=== PATIENT | male | born 1950 | race Caucasian/White ===

== ENCOUNTER 2019-09-08 12:29 | Emergency (ER) | payer OTHER, BC ==
[2019-09-08] MEDS ORDERED: FLUORESCEIN SODIUM 1 MG/WRAP ONE (12:54)
[2019-09-08] MEDS ORDERED: TETRACAINE HCL 0.5% 4ML OPTH ONE (12:54)
--- NOTE | 2019-09-08 13:47 | EDPHYS ---
Physician Documentation [facility] Name: Reuben Jane Age: 69 yrs Sex: Male : 1950 Arrival Date: 09/08/2019 Time: 12:33 Bed 12 Private MD: Remington Salinas ED Physician Kade Castañeda HPI: 09/07 13:42 This 69 yrs old Male presents to ER via Ambulatory with complaints of Foreign rn Body In Eye. 13:42 The patient is experiencing foreign body sensation, to the left eye, caused by debris. rn Onset: The symptoms/episode began/occurred just prior to arrival. Duration: the symptoms are continuous. Aggravated by blinking, rubbing. Severity of symptoms: At their worst the symptoms were moderate in the emergency department the symptoms are unchanged. The patient has experienced similar episodes in the past. Reports scraping a golf cart, prior to arrival, thinks got piece in eye, no vision defect, feels like under left eyelid. No high speed injury. . Historical: - Allergies: 12:45 PENICILLINS; ss - PSHx: 12:45 Cholecystectomy; Heart Surgery; Heart stents; ss - Immunization history:: Last tetanus immunization: up to date. - Social history:: Smoking status: Patient denies any tobacco usage or history of. - Family history:: not pertinent. - Hospitalizations: : No recent hospitalization is reported. ROS: 13:42 Eyes: + foreign body sensation left eye rn Exam: 13:42 Eyes: Pupils equal round and reactive to light, extra-ocular motions intact, no signs rn of corneal ulcer/abrasion, no perforation of eye. + small single black inner upper eyelid left eye. Vital Signs: 12:44 BP 159 / 74; Pulse 75; Resp 16; Temp 98.6(TE); Pulse Ox 97% on R/A; Weight 90.72 kg; ss Height 5 ft. 11 in. (180.34 cm); 12:44 Body Mass Index 27.89 (90.72 kg, 180.34 cm) ss Procedures: 13:42 Foreign Body Removal: a piece of metal, from the left eye, by using a cotton-tipped rn swab, Dressing: none, The patient tolerated the removal well. MDM: 13:38 Patient medically screened. rn 13:42 Differential diagnosis: Corneal abrasion of Foreign body in. Data reviewed: vital rn signs, nurses notes, and as a result, I will discharge patient. Counseling: I had a detailed discussion with the patient and/or guardian regarding: the historical points, exam findings, and any diagnostic results supporting the discharge/admit diagnosis, the need for outpatient follow up, to return to the emergency department if symptoms worsen or persist or if there are any questions or concerns that arise at home. Response to treatment: the patient's symptoms have markedly improved after treatment, and as a result, I will discharge patient. Special discussion: I discussed with the patient/guardian in detail that at this point there is no indication for admission to the hospital. It is understood, however, that if the symptoms persist or worsen the patient needs to return immediately for re-evaluation. Administered Medications: No medications were administered Disposition: 09/08/19 13:45 Discharged to Home. Impression: Foreign body in other and multiple parts of external eye, left eye. - Condition is Stable. - Discharge Instructions: Eye Foreign Body. - Medication Reconciliation Form, Thank You Letter, Antibiotic Education, Prescription Opioid Use form. - Follow up: Private Physician; When: As needed; Reason: Recheck today's complaints, Re-evaluation by your physician. - Problem is new. - Symptoms have improved. Signatures: Kade Castañeda MD MD rn Smirch, Shelby, RN RN ss Emmett Goodwin RN RN ll1 Corrections: (The following items were deleted from the chart) 13:59 13:45 09/08/2019 13:45 Discharged to Home. Impression: Foreign body in other and ll1 multiple parts of external eye, left eye. Condition is Stable. Forms are Medication Reconciliation Form, Thank You Letter, Antibiotic Education, Prescription Opioid Use. Follow up: Private Physician; When: As needed; Reason: Recheck today's complaints, Re-evaluation by your physician. Problem is new. Symptoms have improved. rn
--- NOTE | 2019-09-08 13:47 | ER ---
Nurse's Notes [facility] Name: Reuben Jane Age: 69 yrs Sex: Male : 1950 Arrival Date: 09/08/2019 Time: 12:33 Bed 12 Private MD: Remington Salinas Diagnosis: Foreign body in other and multiple parts of external eye, left eye Presentation: 09/07 12:44 Chief complaint: Patient states: pain to L eye. Pt was sanding object to pain and ss believes some rust may have gotten into his eye. Coronavirus screen: Proceed with normal triage. Patient denies a cough. Patient denies shortness of breath or difficulty breathing. Patient denies measured and/or subjective temperature greater than 100.4F prior to today's visit. Patient denies travel on a cruise ship or to a country the [facility] currently lists as an affected area. Patient denies contact with known and/or suspected case of COVID-19. Ebola Screen: Patient denies exposure to infectious person. Patient denies travel to an Ebola-affected area in the 21 days before illness onset. Initial Sepsis Screen: Does the patient meet any 2 criteria? No. Patient's initial sepsis screen is negative. Does the patient have a suspected source of infection? No. Patient's initial sepsis screen is negative. Risk Assessment: Do you want to hurt yourself or someone else? Patient reports no desire to harm self or others. Onset of symptoms was September 08, 2019. 12:44 Method Of Arrival: Ambulatory ss 12:44 Acuity: TANO 4 ss Triage Assessment: 13:43 General: Appears in no apparent distress. Behavior is calm, cooperative, appropriate ll1 for age. Pain: Denies pain. Historical: - Allergies: 12:45 PENICILLINS; ss - PSHx: 12:45 Cholecystectomy; Heart Surgery; Heart stents; ss - Immunization history:: Last tetanus immunization: up to date. - Social history:: Smoking status: Patient denies any tobacco usage or history of. - Family history:: not pertinent. - Hospitalizations: : No recent hospitalization is reported. Screenin:05 Abuse screen: Denies threats or abuse. Denies injuries from another. Nutritional ss screening: No deficits noted. Tuberculosis screening: Never had TB. Fall Risk None identified. Assessment: 13:30 Reassessment: irrigated patient's L eye with 60 mL of NS. 13:42 Reassessment: Patient appears in no apparent distress at this time. Patient and/or ss family updated on plan of care and expected duration. Pain level reassessed. Patient is alert, oriented x 3, equal unlabored respirations, skin warm/dry/pink. Vital Signs: 12:44 BP 159 / 74; Pulse 75; Resp 16; Temp 98.6(TE); Pulse Ox 97% on R/A; Weight 90.72 kg; ss Height 5 ft. 11 in. (180.34 cm); 12:44 Body Mass Index 27.89 (90.72 kg, 180.34 cm) ED Course: 12:33 Patient arrived in ED. mr 12:33 Remington Salinas MD is Private Physician. mr 12:45 Triage completed. ss 12:45 Arm band placed on left wrist. ss 13:05 Nadiya Poe, CALE is Primary Nurse. 13:05 Patient has correct armband on for positive identification. Bed in low position. Call ss light in reach. 13:37 Kade Castañeda MD is Attending Physician. rn 13:42 Assist provider with eye exam of left eye. Performed by Kade Castañeda MD Patient ss tolerated well. 13:44 Patient did not have IV access during this emergency room visit. Administered Medications: No medications were administered Outcome: 13:44 Discharged to home ambulatory. ss 13:44 Condition: good 13:44 Discharge instructions given to patient, Instructed on discharge instructions, follow up and referral plans. Demonstrated understanding of instructions, follow-up care. 13:45 Discharge ordered by . rn 13:59 Patient left the ED. ll1 Signatures: Jaqueline Martino mr Kade Castañeda MD MD rn Smirch, Shelby, RN RN Emmett Goodwin RN RN ll1
[2019-09-08 14:20] VITALS: BP 159/74; TEMP 98.6; O2SAT 97
== END 2019-09-08 13:59 | disposition home or self-care (01) ==
LOC: ER 12:29
DX: T15.82XA Foreign body in other and multiple parts of external eye, left eye, initial encounter (principal); Z88.0 Allergy status to penicillin; Z95.5 Presence of coronary angioplasty implant and graft
CPT/HCPCS: 99283

== ENCOUNTER 2020-08-11 06:22 | Day surgery (SDC) | payer OTHER, BC ==
[2020-08-10 11:34] LABS: BUN Blood Urea Nitrogen 6 mg/dL (7-18); Bicarbonate 29 mmol/L (21-32); Glucose Level 99 mg/dL (74-106); Potassium 3.9 mmol/L (3.5-5.1); Sodium Level 138 mmol/L (136-145)
[2020-08-10 11:48] LABS: Protime INR 0.98
[2020-08-10 11:56] LABS: Absolute Lymphocytes (CBC) 1.6 K/uL (0.7-4.9); Basophils % 0.4 % (0-1.3); Hematocrit 43.6 % (39.6-49.0); Lymphocytes % 30.2 % (15.3-44.8); MPV 6.6 fL (7.6-11.3); RBC Red Blood Cell Count 4.64 M/uL (4.33-5.43)
--- NOTE | 2020-08-10 11:58 | RAD REPORT ---
EXAM DESCRIPTION: RAD - Chest Pa And Lat (2 Views) - 08/10/2020 11:26 am CLINICAL HISTORY: preop, pending heart catheterization COMPARISON: None TECHNIQUE: Frontal and lateral views of the chest were obtained. FINDINGS: The lungs are clear. Diaphragm is flattened. Heart size is normal and central vasculature is within normal limits. No pleural effusion or pneumothorax seen. No acute bony finding noted. N o aortic abnormality. IMPRESSION: No acute cardiopulmonary process. No significant change from comparison study.
[2020-08-11] MEDS ORDERED: NA CHLORIDE 0.9% 500 ML ONE (07:19)
[2020-08-11] MEDS ORDERED: LIDOCAINE 1% 20 ML MDV ONE (07:33)
[2020-08-11] MEDS ORDERED: HEPA 1000U/500MLS 1,000 UNIT/500 ML BAG IV ONE (07:33)
[2020-08-11] MEDS ORDERED: MIDAZOLAM HCL 2 MG/2 ML INJ ONE (07:34)
[2020-08-11] MEDS ORDERED: ATROPINE SULF 1 MG/10 ML SYR IV ONE (07:35)
[2020-08-11] MEDS ORDERED: NA CHLORIDE 0.9% 0 ML ONE (07:35)
[2020-08-11] MEDS ORDERED: FENTANYL CITR 100 MCG/2 ML ONE (07:35)
[2020-08-11 08:39] VITALS: TEMP 97
[2020-08-11 10:18] VITALS: BP 146/60; O2SAT 97
[2020-08-11] MEDS ORDERED: PRASUGREL (EFFIENT) 10 MG TAB ONE (12:25)
[2020-08-11] MEDS ORDERED: ASPIRIN 325 MG TAB ONE (12:26)
--- NOTE | 2020-08-12 11:30 | OP ---
Date of Procedure: 08/11/2020 Surgeon: Yoseph Macias MD Procedures: Left heart catheterization, selective coronary arteriogram. Indication: Unstable angina and history of coronary artery disease. Procedure In Detail: Mr. Jane was brought to the director of cardiac cath lab today on 08/11/2020 as an outpatient, prepped and draped in routine sterile fashion. Given Versed and fentanyl for sedation. Using the Se paigeinger technique, 10 mL of Xylocaine, a 6-Nepalese sheath was introduced in the right common femoral a rtery successfully. We were unable to advance a 6-Nepalese sheath catheter in the right groin secondar y to severe calcification in the iliacs. A 4-Nepalese catheter, however, was able to make it through. The JR4 catheter was used to do the diagnostic catheterization of the left main. The left main was normal and circumflex was normal ; however, the ostial LAD appeared to have a 60% to 70% st enosis. He has a short left main. The RCA showed some [id number] diffuse plaquing, but no foc al stenosis. 4-Nepalese JR4 catheter. The patient tolerated the procedure well. There wer e no complications. Blood loss was 5 mL. Anesthesia: Total conscious sedation was 45 minutes. Anesthesia: Raya Ricardo. The patient had an Angio-Seal closure device for the right groin. He will remain in the hospital for the significant stenosis in the LAD. Significant by stress test, we will consider coronary intervention in [place] because of his high ris k versus MCGREGOR to the LAD. NB/MODL Voice ID: [id number] Report ID: [id number]
== END 2020-08-11 10:15 | disposition home or self-care (01) ==
LOC: CCL 06:22
DX: I25.110 Atherosclerotic heart disease of native coronary artery with unstable angina pectoris (principal); I71.4 Abdominal aortic aneurysm, without rupture; I11.0 Hypertensive heart disease with heart failure; I50.22 Chronic systolic (congestive) heart failure; I65.23 Occlusion and stenosis of bilateral carotid arteries; I70.213 Atherosclerosis of native arteries of extremities with intermittent claudication, bilateral legs; E78.2 Mixed hyperlipidemia; K21.9 Gastro-esophageal reflux disease without esophagitis; N40.0 Benign prostatic hyperplasia without lower urinary tract symptoms; Z95.5 Presence of coronary angioplasty implant and graft; Z87.891 Personal history of nicotine dependence; Z01.810 Encounter for preprocedural cardiovascular examination; Z20.822 Contact with and (suspected) exposure to COVID-19; Z82.49 Family history of ischemic heart disease and other diseases of the circulatory system
CPT/HCPCS: 85025; 80048; 36415; 85610; 85730; 71046; 93454; U0003; C1893; C1760; J2250; J3010; J7040; J1644; J0583

== ENCOUNTER 2023-12-10 11:45 | Inpatient (IN) | payer OTHER, BC ==
[2023-12-10 12:27] LABS: Absolute Basophils 0.1 K/uL (0-0.5); Absolute Eosinophils 0.3 K/uL (0-0.5); Absolute Lymphocytes (CBC) 2.2 K/uL (0.7-4.9); Absolute Monocytes 0.8 K/uL (0.1-1.3); Absolute Neutrophil 6.7 K/uL (1.8-8.0); Basophils % 0.5 % (0-1.3); Eosinophils % 3.4 % (0-4.4); Hematocrit 38.1 % (39.6-49.0); Hemoglobin 12.6 g/dL (13.6-17.9); Lymphocytes % 21.6 % (15.3-44.8); MCH 31.8 pg (27.0-35.0); MCV 96.4 fL (80-100); MPV 7.1 fL (7.6-11.3); Monocytes % 7.7 % (3.3-12.3); Neutrophils % 66.8 % (41.7-73.7); Platelets 374 thou/uL (152-406); RBC Red Blood Cell Count 3.95 M/uL (4.33-5.43); Red Cell Distribution Width 13.8 % (12.1-15.2)
[2023-12-10 12:47] LABS: ALT/SGPT 16 U/L (16-61); AST/SGOT 31 U/L (15-37); Albumin 2.9 g/dL (3.4-5.0); Albumin/Globulin Ratio 0.7 (1.1-1.8); Alkaline Phosphatase 146 U/L (45-117); BUN Blood Urea Nitrogen 9 mg/dL (7-18); Bicarbonate 23 mEq/L (21-32); Bilirubin Direct 0.2 mg/dL (0-0.2); Bilirubin Indirect, Calculated 0.2 mg/dL (0.2-0.8); Bilirubin Total 0.4 mg/dL (0.2-1.0); Globulin 3.9 g/dL (2.3-3.5); Glomerular Filtration Rate 70 ml/min (=/>90); Glucose Level 119 mg/dL (74-106); NT PRO-BNP 3213 pg/mL (<125); Protein, Total 6.8 g/dL (6.4-8.2); Sodium Level 131 mEq/L (136-145); Troponin High Sensitivity 27.8 pg/mL (<58.9)
[2023-12-10 12:48] LABS: Magnesium < 0.5 mg/dL (1.6-2.4)
--- NOTE | 2023-12-10 13:07 | RAD REPORT ---
EXAM DESCRIPTION: RADChest Single View12/10/2023 12:34 pm CLINICAL HISTORY: DYSPNEA COMPARISON: Chest Pa And Lat (2 Views) dated 03/31/2022; Chest Pa And Lat (2 Views) dated 08/10/2020; Chest Pa And Lat (2 Views) dated 12/19/2018; CHEST SINGLE VIEW dated 12/19/2014 TECHNIQUE: Portable AP view of the chest. FINDINGS: Decreased inspiratory effort limits evaluation. Left chest wall pacer in place. The lungs are clear. No pneumothorax or effusion. The cardiomediastinal contours are otherwise unchanged with sequelae of median sternotomy. IMPRESSION: No acute cardiopulmonary process.
[2023-12-10] MEDS ORDERED: NA CHLORIDE 0.9% 250 ML ONE (13:51)
[2023-12-10] MEDS ORDERED: Magnesium Sulfate 2gm IVPB 2 G/50 ML BAG IV ONE (13:52)
[2023-12-10] MEDS ORDERED: CALCIUM GLUCONATE 1 GM IVPB 0 GM/0 ML BAG IV ONE (13:52)
[2023-12-10] MEDS ORDERED: KCL 20 MEQ/100 mL IVPB 100 ML IV ONE (13:52)
--- NOTE | 2023-12-10 13:52 | ER ---
Nurse's Notes [facility] Name: Reuben Jane Age: 73 yrs Sex: Male : 1950 Arrival Date: 12/10/2023 Time: 11:45 Bed 3 Private MD: Diagnosis: Hypocalcemia;Anemia, unspecified;Hypomagnesemia;Hypokalemia;Heart failure, unspecified Presentation: 12/09 11:58 Chief complaint: Patient states: SOB for 3 days, more severe today. + N/V during ll1 triage. No known fever. Coronavirus screen: Client denies travel out of the [place] in the last 14 days. cough unrelated to allergies, difficulty breathing, shortness of breath, Client presents with at least one sign or symptom that may indicate coronavirus-19. Standard/surgical mask placed on the client. Ebola Screen: Patient denies travel to an Ebola-affected area in the 21 days before illness onset. Initial Sepsis Screen: Does the patient meet any 2 criteria? No. Patient's initial sepsis screen is negative. Does the patient have a suspected source of infection? No. Patient's initial sepsis screen is negative. Risk Assessment: Do you want to hurt yourself or someone else? Patient reports no desire to harm self or others. Onset of symptoms was December 08, 2023. 11:58 Method Of Arrival: Ambulatory ll1 11:58 Acuity: TANO 2 ll1 Triage Assessment: 11:59 General: Appears distressed, uncomfortable, ill, Behavior is cooperative, appropriate ll1 for age. Respiratory: Reports shortness of breath cough that is Onset: The symptoms/episode began/occurred 3 days ago, worse today. 15:55 Respiratory: the patient has mild shortness of breath. dd2 Historical: - Allergies: 11:57 PENICILLINS; ll1 - PMHx: 11:57 Bladder cancer; Chronic obstructive lung disease; Congestive heart failure; Myocardial ll1 infarction; Prostate Cancer; - PSHx: 11:57 Appendectomy; Cholecystectomy; Coronary Angioplasty; Pacemaker/Defibrillator; ll1 - Immunization history:: Adult Immunizations up to date. - Infectious Disease History:: Denies. - Social history:: Smoking status: Patient reports the use of cigarette tobacco products, smokes one-half pack cigarettes per day. Screenin:19 [facility] ED Fall Risk Assessment (Adult) History of falling in the last 3 months, dd2 including since admission No falls in past 3 months (0 pts) Confusion or Disorientation No (0 pts) Intoxicated or Sedated No (0 pts) Impaired Gait No (0 pts) Mobility Assist Device Used No (0 pt) Altered Elimination No (0 pt) Score/Fall Risk Level 0 - 2 = Low Risk Oriented to surroundings, Maintained a safe environment, Hourly rounding (assess needs \\T\\ fall precautionary measures) done. Abuse screen: Denies threats or abuse. Nutritional screening: No deficits noted. Tuberculosis screening: No symptoms or risk factors identified. Assessment: 12:19 General: Appears uncomfortable, Behavior is calm, cooperative. Pain: Denies pain. dd2 Neuro: Reports numbness in GENERALIZED. Cardiovascular: Reports nausea, Rhythm is atrial pacer. Respiratory: Reports shortness of breath Airway is patent Respiratory effort is even, unlabored, Breath sounds are clear. GI: No deficits noted. : No deficits noted. EENT: No deficits noted. Derm: No deficits noted. Musculoskeletal: No deficits noted. Vital Signs: 11:58 Pulse 99; Resp 20; Temp 97.6; Pulse Ox 96% on R/A; Weight 92.99 kg; Height 5 ft. 11 in. ll1 ; 12:25 BP 127 / 99; Pulse 76; Resp 17; Pulse Ox 93% ; dd2 14:49 BP 125 / 59; Pulse 71; Resp 16; Pulse Ox 95% ; dd2 11:58 Body Mass Index 28.59 (92.99 kg, 180.34 cm) ll1 ED Course: 11:48 Patient arrived in ED. ra3 11:50 Dragan Torres DO is Attending Physician. ms3 11:52 Arm band placed on Patient placed in an exam room, on a stretcher. ll1 11:59 Triage completed. ll1 12:04 AUSTEN ZHANG, CALE is Primary Nurse. dd2 12:19 Patient has correct armband on for positive identification. Bed in low position. Call dd2 light in reach. Side rails up X 1. Provided Education on: CALL LIGHT, IV, PROCEDURES. Door closed. Warm blanket given. 12:19 No provider procedures requiring assistance completed. dd2 12:20 Inserted saline lock: 20 gauge in right forearm, using aseptic technique. go2 12:20 Basic Metabolic Panel Sent. go2 12:20 CBC with Diff Sent. go2 12:20 LFT's Sent. go2 12:20 Magnesium Sent. go2 12:20 NT PRO-BNP Sent. go2 12:20 Troponin HS Sent. go2 12:36 XRAY Chest (1 view) In Process Unspecified. EDMS 13:49 Kim Salinas MD is Hospitalizing Provider. ms3 14:02 Magnesium Sent. go2 14:45 CM met with patient at bedside in ED exam room. Patient identified by name and . ane Demographic sheet confirmed. states he lives with his in a home that is on "stilts" and an elevator. Patient states he is the primary caregiver for his , who had a stroke, then had a fall resulting in a broken hip. He goes on to explain that his Suzy is currently recovering at [facility] in [place], [place]. states prior to admission, he performs ADLs independently. DME in the home includes a cane and a walker. Mr. Jane's preferred plan is to return home upon discharge. He states he has many friends that will be able to provide support when him and his Suzy are both discharged. He states his friend Orestes Pascal transported him to the hospital and is able to transport him home upon discharge. CM team will continue to follow and coordinate care. 15:54 Patient admitted, IV remains in place. dd2 Administered Medications: 14:01 Drug: Potassium Chloride IV 20 mEq IV at calculated rate once; administer over 1-2 go2 hours Route: IV; Rate: calculated rate; Site: right forearm; 14:02 Drug: Magnesium Sulfate IVPB 2 grams IVPB once over 2 hrs Route: IVPB; Infused Over: 2 go2 hrs; Site: right forearm; 15:03 Follow up: Response: No adverse reaction; IV Status: Completed infusion; IV Intake: kc6 100ml 14:02 Drug: Calcium Gluconate IVPB 2 grams IVPB once over 60 mins; (mix in NS 100 mL) Route: go2 IVPB; Infused Over: 60 mins; Site: right forearm; 15:03 Follow up: Response: No adverse reaction; IV Status: Completed infusion; IV Intake: kc6 100ml Medication: 12:19 VIS not applicable for this client. dd2 Intake: 15:03 IV: 100ml; Total: 100ml. kc6 15:03 IV: 100ml; Total: 200ml. kc6 Outcome: 13:52 Decision to Hospitalize by Provider. ms3 15:54 Admitted to Med/surg accompanied by tech, via wheelchair, room 223, with chart, dd2 15:54 Condition: stable 15:54 Instructed on the need for admit, 15:55 Patient left the ED. dd2 Signatures: Dispatcher [employer] EDMS Emmett Goodwin, RN RN ll1 Dragan Torres, DO DO ms3 Candie Mccormick RN RN kc6 Carlita Lopez ra3 Marlena Arcos RN RN ane DAVIS, DIANA, RN RN dd2 Keri Cruz RN RN go2 Corrections: (The following items were deleted from the chart) 12:27 12:19 Respiratory: Reports shortness of breath Airway is patent Respiratory effort is dd2 even, unlabored, Breath sounds are clear dd2
--- NOTE | 2023-12-10 13:52 | EDPHYS ---
Physician Documentation [facility] Name: Reuben Jane Age: 73 yrs Sex: Male : 1950 Arrival Date: 12/10/2023 Time: 11:45 Bed 3 Private MD: ED Physician Dragan Torres HPI: 12/09 17:42 This 73 yrs old Male presents to ER via Ambulatory with complaints of Shortness Of ms3 Breath, tingling all over. 17:42 73-year-old male with past medical history of bladder cancer, COPD, congestive heart ms3 failure, myocardial infarction presents to the emergency department for shortness of breath that became worse today. Patient denies nausea or vomiting. Patient states he has been shaking and unable to exert himself.. Historical: - Allergies: 11:57 PENICILLINS; ll1 - PMHx: 11:57 Bladder cancer; Chronic obstructive lung disease; Congestive heart failure; Myocardial ll1 infarction; Prostate Cancer; - PSHx: 11:57 Appendectomy; Cholecystectomy; Coronary Angioplasty; Pacemaker/Defibrillator; ll1 - Immunization history:: Adult Immunizations up to date. - Infectious Disease History:: Denies. - Social history:: Smoking status: Patient reports the use of cigarette tobacco products, smokes one-half pack cigarettes per day. ROS: 17:42 Constitutional: Negative for fever, and chills. Neck: Negative for injury, pain, and ms3 swelling, Cardiovascular: Negative for chest pain, and palpitations. Abdomen/GI: Negative for abdominal pain, nausea, vomiting, diarrhea, and constipation, 17:42 Respiratory: Positive for shortness of breath, Exam: 12:22 ECG was reviewed by the Attending Physician. ms3 17:42 Constitutional: This is a well developed, well nourished patient who is awake, alert, ms3 and in no acute distress. Chest/axilla: Normal chest wall appearance and motion. Nontender with no deformity. Cardiovascular: Regular rate and rhythm with a normal S1 and S2. No gallops, murmurs, or rubs. Normal PMI, no JVD. No pulse deficits. Respiratory: Lungs have equal breath sounds bilaterally, clear to auscultation and percussion. No rales, rhonchi or wheezes noted. No increased work of breathing, no retractions or nasal flaring. Abdomen/GI: Soft, non-tender, with normal bowel sounds. No distension or tympany. No guarding or rebound. No evidence of tenderness throughout. Skin: Warm, dry with normal turgor. Normal color with no rashes, no lesions, and no evidence of cellulitis. Vital Signs: 11:58 Pulse 99; Resp 20; Temp 97.6; Pulse Ox 96% on R/A; Weight 92.99 kg; Height 5 ft. 11 in. ll1 ; 12:25 BP 127 / 99; Pulse 76; Resp 17; Pulse Ox 93% ; dd2 14:49 BP 125 / 59; Pulse 71; Resp 16; Pulse Ox 95% ; dd2 11:58 Body Mass Index 28.59 (92.99 kg, 180.34 cm) ll1 MDM: 12:06 Patient medically screened. ms3 17:42 Differential diagnosis: Anemia CHF exacerbation, Myocardial Infarction pneumonia, ms3 pulmonary edema. Data reviewed: vital signs, nurses notes, lab test result(s), EKG, radiologic studies, and as a result, I will admit patient. Consideration of Admission/Observation Patient was admitted/placed on observation. Management of patient was discussed with the following: Hospitalist: Dr. Salinas. I considered the following discharge prescriptions or medication management in the emergency department Medications were administered in the Emergency Department. See MAR. Independent interpretation of the following test(s) in the Emergency Department EKG: See my EKG interpretation above. Counseling: I had a detailed discussion with the patient and/or guardian regarding the historical points, exam findings, and any diagnostic results supporting the discharge/admit diagnosis, lab results, radiology results, the need for further work-up and treatment in the hospital. ED course: Discussed labs and imaging with patient. Patient agrees with admission. All questions were answered. Return precautions discussed include worsening symptoms, or any other concerns. On reevaluation patient remains in stable condition.. 12/09 12:07 Order name: Basic Metabolic Panel; Complete Time: 12:53 ms3 12/09 12:07 Order name: CBC with Diff; Complete Time: 12:53 ms3 12/09 12:07 Order name: LFT's; Complete Time: 12:53 ms3 12/09 12:07 Order name: Magnesium; Complete Time: 12:53 ms3 12/09 12:07 Order name: NT PRO-BNP; Complete Time: 12:53 ms3 12/09 12:07 Order name: Troponin HS; Complete Time: 12:53 ms3 12/09 13:39 Order name: Magnesium ms3 12/09 14:37 Order name: CBC with Automated Diff EDMS 12/09 14:37 Order name: CBC with Automated Diff EDMS 12/09 14:37 Order name: Comprehensive Metabolic Panel EDMS 12/09 14:37 Order name: Comprehensive Metabolic Panel EDMS 12/09 12:07 Order name: XRAY Chest (1 view); Complete Time: 13:32 ms3 12/09 12:07 Order name: Cardiac monitoring; Complete Time: 12:11 ms3 12/09 12:07 Order name: EKG - Nurse/Tech; Complete Time: 12:20 ms3 12/09 12:07 Order name: IV Saline Lock; Complete Time: 12:20 ms3 12/09 12:07 Order name: Labs collected and sent; Complete Time: 12:20 ms3 12/09 12:07 Order name: O2 Per Protocol; Complete Time: 12:10 ms3 12/09 12:07 Order name: O2 Sat Monitoring; Complete Time: 12:10 ms3 12/09 13:54 Order name: Labs - recollect needed: collect another green top; Complete Time: 14:54 bd EC:22 Rate is 82 beats/min. Rhythm is regular. QRS [place] is Normal. MT interval is normal. QRS ms3 interval is prolonged. Clinical impression: NSR w/ Non-specific ST/T Changes. Interpreted by me. Reviewed by me. Administered Medications: 14:01 Drug: Potassium Chloride IV 20 mEq IV at calculated rate once; administer over 1-2 go2 hours Route: IV; Rate: calculated rate; Site: right forearm; 14:02 Drug: Magnesium Sulfate IVPB 2 grams IVPB once over 2 hrs Route: IVPB; Infused Over: 2 go2 hrs; Site: right forearm; 15:03 Follow up: Response: No adverse reaction; IV Status: Completed infusion; IV Intake: kc6 100ml 14:02 Drug: Calcium Gluconate IVPB 2 grams IVPB once over 60 mins; (mix in NS 100 mL) Route: go2 IVPB; Infused Over: 60 mins; Site: right forearm; 15:03 Follow up: Response: No adverse reaction; IV Status: Completed infusion; IV Intake: kc6 100ml Disposition: 17:45 Critical Care:. ms3 Disposition Summary: 12/10/23 13:52 Hospitalization Ordered Notes: Hospitalization Status: Inpatient Admission ms3 Provider: Kim Salinas ms3 Location: Telemetry/[facility] (Inpatient) ms3 Condition: Stable ms3 Problem: new ms3 Symptoms: are unchanged ms3 Bed/Room Type: Standard ms3 Room Assignment: 223(12/10/23 14:51) bd Diagnosis - Hypocalcemia ms3 - Anemia, unspecified ms3 - Hypomagnesemia ms3 - Hypokalemia ms3 - Heart failure, unspecified ms3 Forms: - Medication Reconciliation Form ms3 - SBAR form ms3 - Leadership Thank You Letter ms3 Critical care time excluding procedures: 17:45 Critical care time: Bedside Care: 40 minutes, Consultation: 5 minutes, Family ms3 Intervention: 5 minutes. Total time: 50 minutes Signatures: Dispatcher [employer] EDMS Nataliya Castrejon Lynsay RN RN ll1 Dragan Torres DO DO ms3 AUSTEN ZHANG RN RN dd2 Keri Cruz RN RN go2 Candie Mccormick RN kc6 Corrections: (The following items were deleted from the chart) 12:07 12:07 BASIC METABOLIC PANEL+C.LAB.BRZ ordered. EDMS EDMS 12:07 12:07 CBC+H.LAB.BRZ ordered. EDMS EDMS 12:07 12:07 HEPATIC FUNCTION+C.LAB.BRZ ordered. EDMS EDMS 12:07 12:07 MAGNESIUM+C.LAB.BRZ ordered. EDMS EDMS 12:07 12:07 PROBNP+C.LAB.BRZ ordered. EDMS EDMS 12:07 12:07 Troponin High Sensitivity+C.LAB.BRZ ordered. EDMS EDMS 12:07 12:07 Chest Single View+RAD.RAD.BRZ ordered. EDMS EDMS 14:51 13:52 ms3 bd
[2023-12-10] MEDS ORDERED: CALCIUM GLUCONATE 1 GM IVPB 2 GM/100 ML BAG IV ONE (13:55)
[2023-12-10] MEDS ORDERED: ONDANSETRON 4 MG/2 ML VIAL IV PRN (14:31)
[2023-12-10 16:45] VITALS: BMI 28.4
[2023-12-10] MEDS: Magnesium Sulfate 2gm IVPB 2 G/50 ML BAG IV ONE (17:54)
[2023-12-10] MEDS: ROSUVASTATIN 10 MG TAB PO SCH (20:23)
[2023-12-10] MEDS: SACUBITRIL/VALSARTAN 24/26 MG TAB PO SCH (20:23)
[2023-12-10] MEDS: MIRTAZAPINE 15 MG TAB PO SCH (20:23)
[2023-12-10] MEDS: ACETAMINOPHEN 500 MG TAB PO PRN (20:24)
[2023-12-10] MEDS: METOPROLOL XL 100 MG TAB PO SCH (20:25)
[2023-12-10] MEDS: DULERA 200/5 (MOMETASONE/FORMOTEROL) INHALER IH ONE (22:29)
[2023-12-11] MEDS: TRAMADOL HCL 50 MG TAB PO ONE (03:15)
[2023-12-11 05:39] LABS: Absolute Eosinophils 0.4 K/uL (0-0.5); Absolute Lymphocytes (CBC) 1.3 K/uL (0.7-4.9); Absolute Monocytes 0.8 K/uL (0.1-1.3); Absolute Neutrophil 5.6 K/uL (1.8-8.0); Basophils % 0.3 % (0-1.3); Eosinophils % 4.4 % (0-4.4); Hematocrit 34.8 % (39.6-49.0); Hemoglobin 11.7 g/dL (13.6-17.9); Lymphocytes % 15.9 % (15.3-44.8); MCH 32.1 pg (27.0-35.0); MCHC 33.5 g/dL (32.0-36.0); MCV 95.9 fL (80-100); MPV 6.9 fL (7.6-11.3); Monocytes % 9.7 % (3.3-12.3); Neutrophils % 69.7 % (41.7-73.7); Platelets 323 thou/uL (152-406); RBC Red Blood Cell Count 3.63 M/uL (4.33-5.43); Red Cell Distribution Width 13.7 % (12.1-15.2)
[2023-12-11 05:55] LABS: AST/SGOT 26 U/L (15-37); Albumin 2.5 g/dL (3.4-5.0); Albumin/Globulin Ratio 0.7 (1.1-1.8); Alkaline Phosphatase 135 U/L (45-117); BUN Blood Urea Nitrogen 8 mg/dL (7-18); Bicarbonate 29 mEq/L (21-32); Bilirubin Total 0.4 mg/dL (0.2-1.0); Globulin 3.6 g/dL (2.3-3.5); Glomerular Filtration Rate 90 ml/min (=/>90); Glucose Level 100 mg/dL (74-106); Magnesium 1.1 mg/dL (1.6-2.4); Protein, Total 6.1 g/dL (6.4-8.2); Sodium Level 134 mEq/L (136-145)
[2023-12-11 05:59] LABS: ALT/SGPT < 14 U/L (16-61)
[2023-12-11] MEDS: Magnesium Sulfate 2gm IVPB 2 G/50 ML BAG IV ONE ×2 (06:29→13:59)
[2023-12-11] MEDS: POTASSIUM CL SA 10 MEQ TAB PO ONE (06:31)
--- NOTE | 2023-12-11 06:57 | HP ---
Date of Admission: 12/10/2023 Chief Complaint: Tingling, numbness. History Of Present Illness: This is a 73-year-old pleasant male patient, who came into our emergency room with 2 days' history of tingling and numbness in different parts of his body, randomly happenin g off and on in last 2 days. Denies any muscle spasm. He has had some diarrhea lately. No nausea, no vomiting. The patient says that he did start some new medication recently prescribed by his renetta do, but he does not know the name and he will try to get this information tomorrow. He was xiomara t into our emergency room and after he was evaluated in the emergency room, he was admitted to the [facility] with severe electrolyte imbalance including low potassium, low calcium, and low magnesium. Re placement for this electrolyte imbalance started in the emergency room and the patient was admitted t o the [facility]. The patient denies any chest pain or shortness of breath. No nausea, no vomiting. He has some chronic lower back pain and suprapubic pain. Allergies: TO PENICILLIN CAUSING RASH. Medications: List reviewed. According to office medication list, he takes PreserVision 1 tablet misty ly, aspirin 81 mg daily ezetimibe 10 mg daily, Trelegy inhaler 1 puff daily, fluticasone nasal spray 1 spray each nostril 2 times a day, furosemide 40 mg 2 times a day, gabapentin 100 mg 2 times a day, levocetirizine 5 mg daily, losartan 25 mg daily, magnesium oxide 400 mg 2 times a day, metoprolol 25 mg takes 3 tablets 2 times a day, mirtazapine 7.5 mg daily at bedtime, pantoprazole 40 mg daily, rosu vastatin 40 mg daily at bedtime, spironolactone 25 mg daily, Entresto 24/26 mg 1 tablet 2 times a day , and sertraline 25 mg daily. Review of Systems: Neurology: As mentioned above. Musculoskeletal: As mentioned above. All other systems reviewed and negative. Past Medical History: Significant for allergic rhinitis, COPD, hypertension, mixed hyperlipidemia, c oronary artery disease, non-STEMI on April 06, 2022, and the patient had angioplasty with stent pl acement, chronic systolic congestive heart failure, thoracic aortic aneurysm involving ascending aort a, aortic atherosclerosis, bilateral carotid artery stenosis, gastroesophageal reflux disease, Isai t's esophagus, diverticulosis, prostate cancer diagnosed on November 06, 2019 and was treated with radiat ion therapy so far. Past Surgical History: Coronary artery stent placement in 2002 and coronary artery bypass surgery on September 14, 2020, and coronary artery angioplasty with stent placement on April 06, 2022. The patien t had AICD placement in 2022, cholecystectomy, appendectomy. Family History: Father had [place]. Mother in motor vehicular accident. Social History: Significant for prior history of smoking, not at present time. Use of alcohol, nega tive. Physical Examination: Vital Signs: Initial temperature 96.8, pulse 76, respiratory rate 16, blood pressure 140/66, oxygen saturation 97%. Height 5 feet 11 inches, weight 204 pounds. General: Awake, alert, oriented, not in distress. HEENT: Head atraumatic, normocephalic. Conjunctivae nonerythematous. Sclerae white. Mouth, no thr ush or edema noted. Ears/Nose, no mass, lesion, discharge noted. Neck: Supple. No JVD, lymph nodes, bruit, thyromegaly noted. Lungs: Bilateral good equal air entry. Clear to auscultation. No rhonchi. No rales. Heart: Normal heart sounds, no murmur or gallop. Abdomen: Soft, bowel sounds normal. No guarding, rigidity, tenderness, mass, hepatosplenomegaly, dis tention, or bruit noted. Extremities: No leg edema. No calf tenderness. Skin: No rash, ulcer, cellulitis. Lymphatics: No lymph node enlargement in neck, supraclavicular, infraclavicular region. Neuro: No focal neurological deficit. Chest: Unremarkable. External Genitalia: Deferred. Rectal: Deferred. Laboratory Data: White count 10, hemoglobin 12.6, platelets 374. Sodium 131, potassium 3, chloride 95, bicarb 23, BUN 9, creatinine 1.12, glucose 119, calcium 6.1, magnesium less than 0.5, and after i nitial correction in the emergency room, repeat magnesium was 1. Liver function tests normal. Tropo yulissa: First troponin 27.8, second troponin 26.5. ProBNP 3213. Chest x-ray, no acute cardiopulmonary changes. Impression: 1.Hypokalemia. 2.Hypocalcemia. 3.Hypomagnesemia. 4.Chronic systolic heart failure. 5.Coronary artery disease. 6.Chronic obstructive pulmonary disease. 7.Hypertension. 8.Mixed hyperlipidemia. 9.Diverticulosis. 10.Gastroesophageal reflux disease. 11.Prostate cancer. Plan: We will go ahead and admit the patient to hospital for further evaluation and management of th is problem. The patient is appropriate for inpatient and is expected to spend 2 midnights in [facility]. For his hypocalcemia, this was corrected in the emergency room yesterday and we will repeat blood work tomorrow. Depending on tomorrow's lab value, we will decide whether he needs any further IV ca lcium replacement therapy or not. For hypokalemia, we corrected that yesterday and we put him on ainsley ctrolyte replacement protocol for that with monitoring of the blood work results. For his hypomagnes emia, we started initial correction in the emergency room and it was still on the low and so we will continue to correct that following electrolyte replacement protocol. His coronary artery disease pro blem is stable. No need for any further intervention except continuation of medication. For his chr onic systolic heart failure, we will continue his medications as per order and medically he is stable . No need for any further intervention. For hypertension, we will monitor blood pressure. Continue antihypertensive medication. If necessary, make adjustment on medication. For his hyperlipidemia, we will continue his statin therapy as per order and no need for further intervention. For his gastr oesophageal reflux disease, we will continue his proton pump inhibitor therapy and no need for any fu rther intervention. Tylenol was ordered for his pain per his request and for his suprapubic and lowe r back pain, I will communicate more details with him as he has been communicating with his specialis t, but if necessary, we will consider further evaluation. SCD was ordered for DVT prophylaxis. I will see him tomorrow morning for followup. KASIA/MODL Voice ID: [id number]
[2023-12-11] MEDS: PANTOPRAZOLE 40MG TABLET PO SCH (08:44)
[2023-12-11] MEDS: TAMSULOSIN 0.4 MG SR CAP PO SCH (08:44)
[2023-12-11] MEDS: CALCIUM GLUCONATE 1 GM IVPB 1 GM/50 ML BAG IV SCH (08:44)
[2023-12-11] MEDS: CALCIUM CARB 500MG/VIT D 200 IU TAB PO SCH (08:44)
[2023-12-11] MEDS: EZETIMIBE 10 MG TAB PO SCH (08:44)
[2023-12-11] MEDS: FUROSEMIDE 40 MG TABLET PO SCH (08:45)
[2023-12-11] MEDS: TRAMADOL HCL 50 MG TAB PO PRN (08:45)
--- NOTE | 2023-12-11 10:51 | RAD REPORT ---
EXAM DESCRIPTION: RAD - Lumbar Spine 3 Views - 12/11/2023 10:41 am CLINICAL HISTORY: back pain Radiculopathy COMPARISON: No comparisons FINDINGS: Vertebral body heights appear maintained. No compression fracture noted. Multilevel degene rative changes present throughout the lumbar spine, most notable at L4-5 with there is mild anterolis thesis also present. Degenerative dextroscoliosis of the lumbosacral junction. Atherosclerosis of the aorta and iliac vessels. Mild anterior wedging of the vertebral bodies of thoracolumbar junction appears chronic. IMPRESSION: Moderate multilevel degenerative spondylosis is present of lumbar spine. No acute lumbar spine abnormality detected.
[2023-12-11] MEDS: MAGNESIUM SULFATE 1 gm IVPB 1 GM/100 ML BAG IV ONE (13:29)
--- NOTE | 2023-12-11 17:48 | EKG ---
Test Date: 2023-12-10 Test Time: 12:14:10 Ironer Sock: LIZ MEASUREMENT RESULTS: Intervals: Rate: 82 CA: 136 QRSD: 114 QT: 442 QTc: 516 [place]: P: -17 CA: 136 QRS: 54 T: 228 INTERPRETIVE STATEMENTS: Sinus rhythm with occasional premature ventricular complexes Incomplete left bundle branch block ST & T wave abnormality, consider inferolateral ischemia Prolonged QT Abnormal ECG Compared to ECG 12/20/2014 05:42:20 Ventricular premature complex(es) now present Left bundle-branch block now present Prolonged QT interval now present Sinus bradycardia no longer present Myocardial infarct finding no longer present ST (T wave) deviation still present Possible ischemia still present Electronically Signed On 12-11-23 17:45:43 CDT by Yadiel Schwartz
[2023-12-11] MEDS: DOCUSATE NA/SENNA CONC 1 TAB PO SCH (20:20)
[2023-12-11] MEDS: DULERA 200/5 (MOMETASONE/FORMOTEROL) INHALER IH SCH (22:00)
[2023-12-11] MEDS: MELATONIN 5 MG TABLET PO SCH (23:05)
[2023-12-11 23:16] LABS: Anion Gap 9.5 mEq/L (5.0-15.0); Magnesium 1.7 mg/dL (1.6-2.4); Potassium 3.5 mEq/L (3.5-5.1)
[2023-12-11 23:46] LABS: Specific Gravity 1.011 (1.005-1.030); Sqamous Epithelial <5 /HPF (None Seen); Urine Bacteria None Seen /HPF (<20); Urine Bilirubin NEGATIVE (Negative); Urine Blood 3+ (Negative); Urine Clarity Turbid (Clear); Urine Color Light-Yellow (Yellow); Urine Culture Reflex Order REFLEXED; Urine Glucose NEGATIVE (Negative); Urine Ketones NEGATIVE (Negative); Urine Microscopic Reflex YN ORDER UMIC; Urine Mucus Slight /HPF (None Seen); Urine Nitrite NEGATIVE (Negative); Urine Protein 1+ (Negative); Urine RBC >50 /HPF (None Seen); Urine Urobilinogen Normal (Normal)
[2023-12-12 06:29] LABS: Anion Gap 9.2 mEq/L (5.0-15.0); Magnesium 1.7 mg/dL (1.6-2.4); Potassium 3.2 mEq/L (3.5-5.1)
--- NOTE | 2023-12-12 06:45 | PN ---
Date of Progress Note: 12/11/2023 Subjective: The patient was seen this morning for followup. He was lying in bed, not in distress. Has longstanding complaints of burning sensation with urination and also to some degree constant burn ing sensation in his urethra as he describes and lower back pain. He has been seeing specialist for this including urologist and oncologist and says he is going to have PET scan done in the near future for further evaluation of all this ongoing problem and at home he does not take any medication, but here he is requesting more and more medication while in the hospital. Objective: Vital Signs: Reviewed. HEENT: Unremarkable. Lungs: Clear to auscultation. Heart: Sounds normal. Abdomen: Soft. Bowel sounds normal. No guarding, rigidity, tenderness, distention. Extremities: No leg edema. Laboratory Data: Today's lab results reviewed. Impression: 1.Hypokalemia. 2.Hypomagnesemia. 3.Hypocalcemia. 4.Coronary artery disease. 5.Anemia. Plan: We will go ahead and continue to replace electrolyte per order. Monitor electrolytes and cont inue replacement as it becomes necessary. I have ordered lumbar spine x-ray today as he is having al l this back pain which is chronic and x-ray result shows evidence of arthritis, but no other acute fi ndings. I have also ordered urinalysis. The patient is taking tramadol 50 mg every 6 hours as neede d and he requested the dose to be increased to every 4 hours, which I will not do so as this is his c hronic ongoing problem and there is no reason for him to have excess amount of pain medication while in the hospital as he was not using any such medications at home. The patient obviously should nivia nue to follow up with his physicians on outpatient basis for further evaluation and management of thi s problems and if he needs any narcotic pain medication, then we will definitely have to ask him to aaron cordova up with discharge specialist. I will see him tomorrow for followup. We will repeat erlinda connors work in the morning. Depending on his electrolytes, plan will be to discharge him to go home ambika chaparro. KASIA/MODL Voice ID: [id number] Report ID: [id number]
[2023-12-12 07:40] VITALS: O2SAT 95
[2023-12-12] MEDS: POTASSIUM CL SA 10 MEQ TAB PO ONE ×2 (08:51→16:03)
[2023-12-12] MEDS: MAGNESIUM SULFATE 1 gm IVPB 1 GM/100 ML BAG IV ONE (08:51)
[2023-12-12] MEDS: CALCIUM GLUCONATE 1 GM IVPB 1 GM/50 ML BAG IV SCH (08:51)
[2023-12-12 17:02] VITALS: BP 122/60; TEMP 98.6
[2023-12-12 18:05] LABS: Magnesium 1.9 mg/dL (1.6-2.4)
--- NOTE | 2023-12-13 01:56 | DS ---
Date of Discharge: 12/12/2023 Disposition: The patient was discharged to go home. Physical Examination: HEENT: Unremarkable. Lungs: Clear to auscultation. Heart: Sounds normal. Abdomen: Soft. Bowel sounds normal. No guarding, rigidity, tenderness, distention. Extremities: No leg edema. Laboratory Data: This morning, sodium 132, potassium 3.2, chloride 97, bicarb 29, BUN 7, creatinine 0.86, glucose 100, calcium 6.9, magnesium 1.7. His serum albumin was 2.5 yesterday morning. Upon ad mission, sodium 131, potassium 3, chloride 95, bicarb 23, BUN 9, creatinine 1.12, glucose 119, calciu m 6.1, magnesium less than 0.5. Liver function tests unremarkable. Initial troponin 27.8, second tr oponin 26.5, third troponin 33.2. Initial WBC 10, hemoglobin 12.6, platelets 374, and yesterday WBC 8, hemoglobin 11.7, platelets 323. Urinalysis shows leukocyte esterase 25, rbc more than 50, wbc 10 to 20, bacteria not seen. Hospital Course: This is a 73-year-old male patient, came into emergency room with complaints of tin gling and numbness of different part of his body. Please see dictated H and P for more information. After the patient was evaluated in the emergency room, he was admitted to the hospital under my serv ice with severe electrolyte problem. We started to replace his electrolytes in the emergency room an d we continued that throughout this hospitalization. The patient received IV calcium gluconate and o ral calcium supplementation, IV potassium replacement initially and then oral potassium replacement. He also received IV magnesium replacement therapy. At home, he takes magnesium oxide 400 mg 2 times a day. He does not take any calcium supplement or potassium replacement at home. The patient was h aving lot of complaints of burning sensation with urination and reported that this is his ongoing pro blem that he has for long time and he has been seeing urologist and actually has appointment coming u p to see his specialist in the near future. He also has some back pain which is lower back pain, but between lower back pain and dysuria, he is having significant pain from dysuria and minimal pain fro m his lower back. The patient required some narcotic pain medication which was tramadol and he was a sking more and more tramadol and obviously I did not agree with that for 2 reasons: He was having so me constipation issue, but other thing is this is his ongoing chronic complaint as outpatient, for wh ich he does not take any pain medication and there is no reason for us to give him more and more pain medication while in the hospital as I have informed him that upon discharge from the hospital, I cayla l not be giving him narcotic pain medication for this and he will need to follow up with his urologis t, which he will do so. Today, we replaced his electrolyte and last blood work was done this afterno on. After results reviewed, decision was made to discharge him to go home in stable condition. His tingling and numbness complaints that he had has completely resolved. X-ray of the lumbar spine show s some changes of arthritis, but no acute findings. Final Diagnoses: 1.Hypokalemia. 2.Hypomagnesemia. 3.Hypocalcemia. 4.Chronic systolic heart failure. 5.Coronary artery disease. 6.Chronic obstructive pulmonary disease. 7.Hypertension. 8.Mixed hyperlipidemia. 9.Diverticulosis. 10.Gastroesophageal reflux disease. 11.Prostate cancer. 12.Lumbar spondylosis. Discharge Medications And Instructions: Continue all prior home medication except following changes: 1.Change magnesium oxide 400 mg tablet, the patient to take 2 tablets by mouth 2 times a day. 2.Start oigg-bin-etgykoa Caltrate plus D 1 tablet by mouth 2 times a day. 3.Start potassium chloride 10 mEq capsules take 1 capsule by mouth 3 times a day. 4.Follow up at my office next week and at that time we will repeat his blood work for monitoring of electrolytes. Total time spent today 45 minutes. KASIA/MODL Voice ID: [id number] Report ID: [id number]
== END 2023-12-12 19:13 | disposition home or self-care (01) | DRG 641 ==
LOC: ER 11:45 → ERHOLD 14:31 → 2ND 15:34
PROVIDERS: ADMIT Internal Medicine; ATTEND Internal Medicine
DX: E83.51 Hypocalcemia (principal); I50.22 Chronic systolic (congestive) heart failure; C67.9 Malignant neoplasm of bladder, unspecified; I11.0 Hypertensive heart disease with heart failure; D64.9 Anemia, unspecified; E87.6 Hypokalemia; E78.2 Mixed hyperlipidemia; J44.9 Chronic obstructive pulmonary disease, unspecified; E83.42 Hypomagnesemia; K21.9 Gastro-esophageal reflux disease without esophagitis; K57.90 Diverticulosis of intestine, part unspecified, without perforation or abscess without bleeding; I25.10 Atherosclerotic heart disease of native coronary artery without angina pectoris; M47.816 Spondylosis without myelopathy or radiculopathy, lumbar region; R30.0 Dysuria; I25.2 Old myocardial infarction; Z95.5 Presence of coronary angioplasty implant and graft; Z85.46 Personal history of malignant neoplasm of prostate; Z95.810 Presence of automatic (implantable) cardiac defibrillator
CPT/HCPCS: 36415; 71045; 72100; 80048; 80053; 80076; 81001; 83735; 83880; 84132; 84484; 85025; 87086; 87088; 93005; 96365; 96368; 96375; 99285; J0612; J3475; J3480; J3535; J7050

== ENCOUNTER 2023-12-14 22:53 | Emergency (ER) | payer OTHER, BC ==
[2023-12-14] MEDS ORDERED: CEFTRIAXONE 1000 MG/VIAL ONE (23:56)
[2023-12-14] MEDS ORDERED: ONDANSETRON 4 MG/2 ML VIAL ONE (23:57)
[2023-12-14] MEDS ORDERED: NA CHLORIDE 0.9% 50 ML ONE (23:57)
[2023-12-14] MEDS ORDERED: MORPHINE 4 MG/ML SYR ONE (23:57)
[2023-12-14] MEDS ORDERED: NA CHLORIDE 0.9% 1,000 ML ONE (23:58)
[2023-12-15 00:03] LABS: Absolute Eosinophils 0.4 K/uL (0-0.5); Absolute Lymphocytes (CBC) 1.2 K/uL (0.7-4.9); Absolute Monocytes 0.5 K/uL (0.1-1.3); Absolute Neutrophil 6.2 K/uL (1.8-8.0); Basophils % 0.4 % (0-1.3); Eosinophils % 5.4 % (0-4.4); Hematocrit 31.5 % (39.6-49.0); Hemoglobin 10.7 g/dL (13.6-17.9); MCH 32.1 pg (27.0-35.0); MCHC 34.1 g/dL (32.0-36.0); MCV 94.3 fL (80-100); MPV 6.6 fL (7.6-11.3); Monocytes % 6.3 % (3.3-12.3); Neutrophils % 73.9 % (41.7-73.7); Platelets 363 thou/uL (152-406); RBC Red Blood Cell Count 3.34 M/uL (4.33-5.43); Red Cell Distribution Width 13.8 % (12.1-15.2)
[2023-12-15 00:19] LABS: Albumin 2.6 g/dL (3.4-5.0); Albumin/Globulin Ratio 0.7 (1.1-1.8); Anion Gap 9.8 mEq/L (5.0-15.0); Bilirubin Direct 0.2 mg/dL (0-0.2); Bilirubin Indirect, Calculated 0.1 mg/dL (0.2-0.8); Bilirubin Total 0.3 mg/dL (0.2-1.0); Globulin 3.8 g/dL (2.3-3.5); Potassium 3.8 mEq/L (3.5-5.1); Protein, Total 6.4 g/dL (6.4-8.2)
[2023-12-15] MEDS ORDERED: MORPHINE 4 MG/ML SYR ONE ×2 (00:31→02:03)
[2023-12-15 00:34] LABS: PT Prothrombin Time 12.8 SECONDS (9.4-12.5); Protime INR 1.15
--- NOTE | 2023-12-15 02:42 | ER ---
Nurse's Notes [facility] Name: Reuben Jane Age: 73 yrs Sex: Male : 1950 Arrival Date: 12/14/2023 Time: 22:53 Bed 16 Private MD: Diagnosis: Gross hematuria, acute bladder outlet obstruction, acute urinary retention, urinary bladder mass, urinary bladder blood clots Presentation: 12/13 23:07 Chief complaint: Patient states: urinary retention that began this morning. Pt reports ss he attempted to self cath, but it was bloody and the urine would not flow. HX of bladder CA. Coronavirus screen: Client denies travel out of the [place] in the last 14 days. Ebola Screen: Patient denies exposure to infectious person. Patient denies travel to an Ebola-affected area in the 21 days before illness onset. Initial Sepsis Screen: Does the patient meet any 2 criteria? No. Patient's initial sepsis screen is negative. Does the patient have a suspected source of infection? No. Patient's initial sepsis screen is negative. Risk Assessment: Do you want to hurt yourself or someone else? Patient reports no desire to harm self or others. Onset of symptoms was December 14, 2023. 23:07 Method Of Arrival: Ambulatory ss 23:07 Acuity: TANO 3 ss Historical: - Allergies: 23:09 PENICILLINS; ss - PMHx: 23:09 Bladder cancer; Chronic obstructive lung disease; Prostate Cancer; Myocardial ss infarction; Congestive heart failure; - PSHx: 23:09 Appendectomy; Cholecystectomy; Coronary Angioplasty; Pacemaker/Defibrillator; ss - Infectious Disease History:: Denies. - Social history:: Smoking status: Patient reports the use of cigarette tobacco products, denies chronic smoking, but will smoke occasionally. - Family history:: not pertinent. Screenin/24 01:00 [facility] ED Fall Risk Assessment (Adult) History of falling in the last 3 months, 12 including since admission No falls in past 3 months (0 pts) Confusion or Disorientation No (0 pts) Intoxicated or Sedated No (0 pts) Impaired Gait No (0 pts) Mobility Assist Device Used No (0 pt) Altered Elimination No (0 pt) Score/Fall Risk Level 0 - 2 = Low Risk Oriented to surroundings. 01:00 Nutritional screening: No deficits noted. jm12 01:00 Abuse screen: Denies threats or abuse. Denies injuries from another. Tuberculosis [facility] screening: No symptoms or risk factors identified. Assessment: 00:00 General: Appears uncomfortable, Behavior is cooperative, restless. 12 00:00 Neuro: No deficits noted. Cardiovascular: No deficits noted. Respiratory: No deficits jm12 noted. GI: No deficits noted. No signs and/or symptoms were reported involving the gastrointestinal system. : Reports burning with urination, inability to void, pain. EENT: No deficits noted. No signs and/or symptoms were reported regarding the EENT system. Derm: No deficits noted. No signs and/or symptoms reported regarding the dermatologic system. Musculoskeletal: No deficits noted. No signs and/or symptoms reported regarding the musculoskeletal system. Vital Signs: 12/13 23:07 BP 143 / 75; Pulse 83; Resp 16; Temp 97.8(TE); Pulse Ox 97% on R/A; Weight 92.53 kg; ss Height 5 ft. 11 in. ; Pain 9/10; 12/14 00:47 BP 121 / 92; Pulse 107; Resp 18; Pulse Ox 93% ; Pain 8/10; 12 02:15 BP 128 / 84; Pulse 98; Resp 18; Temp 98.2; [facility] 02:16 Pain 8/10; 12 04:20 Pulse 92; Resp 16; Temp 98; Pulse Ox 100% ; Pain 2/10; jm12 12/13 23:07 Body Mass Index 28.45 (92.53 kg, 180.34 cm) 12/13 23:07 Pain Scale: Adult 12/14 00:47 Pain Scale: Adult [facility] 02:16 Pain Scale: Adult [facility] 04:20 Pain Scale: Adult [facility] [place] Coma Score: 02:36 Eye Response: spontaneous(4). Motor Response: obeys commands(6). Verbal Response: sp4 oriented(5). Total: 15. ED Course: 12/13 22:57 Patient arrived in ED. jj6 23:09 Triage completed. ss 23:09 Arm band placed on right wrist. ss 23:31 Guzman Perrin MD is Attending Physician. sp4 23:57 Inserted saline lock: 20 gauge in right antecubital area, using aseptic technique. af3 Blood collected. Flushed with 10 mL NS. 23:58 Basic Metabolic Panel Sent. af3 23:58 CBC with Diff Sent. af3 23:58 LFT's Sent. af3 23:58 PT-INR Sent. af3 08 00:44 Notified ED physician of other Pt Booker catheter is clogged. [facility] 02:18 CT Abd/Pelvis - Without Contrast In Process Unspecified. EDMS 03:31 [id number] called [facility] for Transfer talked to Dorothea. [facility] accpeted [address] [facility], Hospitalist accepted pt [id number] Dorothea Sarabia gave admin approval --- [facility] Bed [facility]-[id number] report number [phone]. fax # [phone]. 03:42 called [facility] for transfer to [facility] talked to Deidre. mi 04:21 Patient transferred, IV remains in place. [facility] Administered Medications: 00:00 Drug: NS 0.9% IV 1000 ml IV at 125 ml/hr continuous Route: IV; Rate: 125 ml/hr; Site: [facility] right antecubital; 03:24 Follow up: IV Status: Completed infusion [facility] 00:00 Drug: morphine IVP or IV 4 mg IVP once over 4 mins Route: IVP; Infused Over: 4 mins; [facility] Site: right antecubital; 00:55 Follow up: Response: No adverse reaction; No change in condition [facility] 00:00 Drug: Ondansetron IVP 4 mg IVP once; over 2 minutes Route: IVP; Site: right antecubital;[facility] 00:00 Drug: Rocephin - Rocephin (cefTRIAXone) IVPB 1 grams IVPB once over 30 mins; (mix in 50 12 mL NS) Route: IVPB; Infused Over: 30 mins; Site: right antecubital; 00:55 Follow up: IV Status: Completed infusion [facility] 00:40 Drug: morphine IVP or IV 4 mg IVP once over 4 mins Route: IVP; Infused Over: 4 mins; [facility] Site: right antecubital; 02:10 Drug: morphine IVP or IV 4 mg IVP once over 4 mins Route: IVP; Infused Over: 4 mins; [facility] Site: right antecubital; 03:37 Follow up: Response: No change in condition [facility] 03:09 Drug: HYDROmorphone IVP 1 mg IVP once Route: IVP; Site: right antecubital; [facility] 03:37 Follow up: Response: No adverse reaction; No change in condition [facility] Outcome: 02:42 ER care complete, transfer ordered by MD. connelly 04:21 Transferred by ground EMS to [facility], [facility] 04:21 Condition: stable 04:21 Instructed on the need for transfer, 04:22 Patient left the ED. [facility] Signatures: Dispatcher [employer] EDMS Meghana Serrano Shelby, RN RN Crystal Lyles Sergey, MD MD sp4 Ivon Martini RN RN [facility] Tashia Mauricio [facility]
--- NOTE | 2023-12-15 02:42 | EDPHYS ---
Physician Documentation [facility] Name: Reuben Jane Age: 73 yrs Sex: Male : 1950 Arrival Date: 12/14/2023 Time: 22:53 Bed 16 Private MD: ED Physician Guzman Perrin HPI: 12/13 23:31 This 73 yrs old Male presents to ER via Ambulatory with complaints of Urinary sp4 Retention. 12/14 02:36 73-year-old male with history of bladder cancer, COPD, prostate cancer, [place], who his sp4 urologist is at [facility]. Phan, presents with acute bladder pain and gross hematuria. Patient states he feels like his bladder is full and his urine flow was obstructed.. 02:41 PMH - Final Diagnoses: 1. Hypokalemia. 2. Hypomagnesemia. 3. Hypocalcemia. 4. Chronic sp4 systolic heart failure. 5. Coronary artery disease. 6. Chronic obstructive pulmonary disease. 7. Hypertension. 8. Mixed hyperlipidemia. 9. Diverticulosis. 10. Gastroesophageal reflux disease. 11. Prostate cancer. 12. Lumbar spondylosis. 02:46 Jai Phan MD , FACS . sp4 Historical: - Allergies: 12/13 23:09 PENICILLINS; ss - PMHx: 23:09 Bladder cancer; Chronic obstructive lung disease; Prostate Cancer; Myocardial ss infarction; Congestive heart failure; - PSHx: 23:09 Appendectomy; Cholecystectomy; Coronary Angioplasty; Pacemaker/Defibrillator; ss - Infectious Disease History:: Denies. - Social history:: Smoking status: Patient reports the use of cigarette tobacco products, denies chronic smoking, but will smoke occasionally. - Family history:: not pertinent. ROS: 12/14 02:36 Constitutional: Negative for fever, chills, and weight loss, positive for suprapubic sp4 pain and gross hematuria All other systems are negative, Exam: 02:36 Constitutional: This is a well developed, well nourished patient who is awake, alert, sp4 and in moderate distress Head/Face: Normocephalic, atraumatic. Eyes: Pupils equal round and reactive to light, extra-ocular motions intact. Lids and lashes normal. Conjunctiva and sclera are not injected. Cornea within normal limits. Periorbital areas with no swelling, redness, or edema. ENT: Nares patent. No nasal discharge, no septal abnormalities noted. Tympanic membranes are normal and external auditory canals are clear. Oropharynx with no redness, swelling, or masses, exudates, or evidence of obstruction, uvula midline. Mucous membranes moist. Neck: Trachea midline, no thyromegaly or masses palpated, and no cervical lymphadenopathy. Supple, full range of motion without nuchal rigidity, or vertebral point tenderness. Chest/axilla: Normal chest wall appearance and motion. Nontender with no deformity. No lesions are appreciated. Cardiovascular: Regular rate and rhythm with a normal S1 and S2. No gallops, murmurs, or rubs. Normal PMI, no JVD. No pulse deficits. Respiratory: Lungs have equal breath sounds bilaterally, clear to auscultation and percussion. No rales, rhonchi or wheezes noted. No increased work of breathing, no retractions or nasal flaring. Abdomen/GI: Soft, with normal bowel sounds. No distension or tympany. No guarding or rebound. No evidence of tenderness throughout. Back: No spinal tenderness. No costovertebral tenderness. Skin: Warm, dry with normal turgor. Normal color with no rashes, no lesions, and no evidence of cellulitis. MS/ Extremity: Pulses equal, no cyanosis. Neurovascular intact. Full, normal range of motion. Neuro: Awake and alert, GCS 15, oriented to person, place, time, and situation. Cranial nerves II-XII grossly intact. Motor strength 5/5 in all extremities. Sensory grossly intact. Psych: Awake, alert, with orientation to person, place and time. Behavior, mood, and affect are within normal limits Vital Signs: 12/13 23:07 BP 143 / 75; Pulse 83; Resp 16; Temp 97.8(TE); Pulse Ox 97% on R/A; Weight 92.53 kg; ss Height 5 ft. 11 in. ; Pain 910; 12/14 00:47 BP 121 / 92; Pulse 107; Resp 18; Pulse Ox 93% ; Pain 8/10; jm12 02:15 BP 128 / 84; Pulse 98; Resp 18; Temp 98.2; jm12 02:16 Pain 8/10; jm12 04:20 Pulse 92; Resp 16; Temp 98; Pulse Ox 100% ; Pain 2/10; jm12 12/13 23:07 Body Mass Index 28.45 (92.53 kg, 180.34 cm) ss 12/13 23:07 Pain Scale: Adult ss 12/14 00:47 Pain Scale: Adult jm12 02:16 Pain Scale: Adult jm12 04:20 Pain Scale: Adult jm12 [place] Coma Score: 02:36 Eye Response: spontaneous(4). Motor Response: obeys commands(6). Verbal Response: sp4 oriented(5). Total: 15. MDM: 12/13 23:49 Patient medically screened. sp4 12/14 02:42 Differential Diagnosis altered mental status, sepsis, flu, Urinary retention . Data sp4 reviewed: vital signs, nurses notes, lab test result(s), radiologic studies, CT scan. 02:46 ED course: Acute hyponatremia --will replace with careful IV saline infusion. . sp4 03:45 Consideration of Admission/Observation Escalation of care including sp4 admission/observation considered. ED course: IMPRESSION: 1. There is a lobulated area of hyperdensity within the urinary bladder centrally and on the left and surrounding the Booker catheter measuring approximately 10.1 x 5.2 x 5.7 cm suggestive of hemorrhagic clot. Although the patient reportedly had a contrast enhanced study at an outside facility a few days ago and there is apparent excreted contrast within both renal collecting systems on the current study, the configuration suggests clot rather than excreted contrast. Direct visualization may be necessary in order to exclude an underlying mass. 2. There is a heterogeneous right renal cortical enhancement and as previously mentioned presumed excreted contrast within both renal collecting systems. Given the time frame of the prior CT, please correlate clinically for contrast-induced nephropathy. Underlying hemorrhagic clot within either renal collecting system cannot be excluded. 3. Other findings as above. Electronically signed by: Clint Stewart MD 12/15/2023 03:36 AM CDT. 12/13 23:35 Order name: Basic Metabolic Panel; Complete Time: 02: sp4 12/13 23:35 Order name: CBC with Diff; Complete Time: 02: sp4 12/13 23:35 Order name: LFT's; Complete Time: 02: sp4 12/13 23:35 Order name: PT-INR; Complete Time: 02: sp4 12/14 01:43 Order name: CT Abd/Pelvis - Without Contrast sp4 12/13 23:35 Order name: Cardiac monitoring; Complete Time: 00:43 sp4 12/13 23:35 Order name: IV Saline Lock; Complete Time: 23:58 sp4 12/13 23:35 Order name: Labs collected and sent; Complete Time: 23:58 sp4 12/13 23:35 Order name: O2 Per Protocol; Complete Time: 00:43 sp4 12/13 23:35 Order name: O2 Sat Monitoring; Complete Time: 00:43 sp4 12/13 23:35 Order name: Bladder Irrigation; Complete Time: 00:43 sp4 12/13 23:35 Order name: Booker; Complete Time: 00:43 sp4 Administered Medications: 00:00 Drug: NS 0.9% IV 1000 ml IV at 125 ml/hr continuous Route: IV; Rate: 125 ml/hr; Site: [facility] right antecubital; 03:24 Follow up: IV Status: Completed infusion [facility] 00:00 Drug: morphine IVP or IV 4 mg IVP once over 4 mins Route: IVP; Infused Over: 4 mins; [facility] Site: right antecubital; 00:55 Follow up: Response: No adverse reaction; No change in condition [facility] 00:00 Drug: Ondansetron IVP 4 mg IVP once; over 2 minutes Route: IVP; Site: right antecubital;[facility] 00:00 Drug: Rocephin - Rocephin (cefTRIAXone) IVPB 1 grams IVPB once over 30 mins; (mix in 50 jm12 mL NS) Route: IVPB; Infused Over: 30 mins; Site: right antecubital; 00:55 Follow up: IV Status: Completed infusion [facility] 00:40 Drug: morphine IVP or IV 4 mg IVP once over 4 mins Route: IVP; Infused Over: 4 mins; [facility] Site: right antecubital; 02:10 Drug: morphine IVP or IV 4 mg IVP once over 4 mins Route: IVP; Infused Over: 4 mins; [facility] Site: right antecubital; 03:37 Follow up: Response: No change in condition [facility] 03:09 Drug: HYDROmorphone IVP 1 mg IVP once Route: IVP; Site: right antecubital; [facility] 03:37 Follow up: Response: No adverse reaction; No change in condition [facility] Disposition Summary: 12/15/23 02:42 Transfer Ordered Notes: Transfer Location: [facility]System sp4 Reason: Higher level of care sp4 Condition: Stable sp4 Problem: new sp4 Symptoms: have improved sp4 Accepting Physician: TERESA (12/15/23 04:22) jm12 Diagnosis - Gross hematuria, acute bladder outlet obstruction, acute urinary retention, urinary sp4 bladder mass, urinary bladder blood clots Forms: - Medication Reconciliation Form sp4 - SBAR form sp4 Critical care time excluding procedures: 02:46 Critical care time: Bedside Care: 36 minutes, Consultation: 12 minutes, Family sp4 Intervention: 12 minutes. Total time: 60 minutes Signatures: Dispatcher [employer] Nadiya Henao RN RN Guzman Perrin MD MD 4 Ivon Mratini RN RN jm12 Corrections: (The following items were deleted from the chart) 04:22 02:42 [facility] sp4 jm12
[2023-12-15] MEDS ORDERED: HYDROMORPHONE HCL 1 MG/ML INJ ONE (03:08)
[2023-12-15 04:33] VITALS: BP 128/84
[2023-12-15 04:35] VITALS: TEMP 98; O2SAT 100
--- NOTE | 2023-12-17 11:15 | RAD REPORT ---
EXAM DESCRIPTION: CT Abdomen and Pelvis Without Intravenous Contrast CLINICAL HISTORY: Hematuria, abd pain. TECHNIQUE: Axial computed tomography images of the abdomen and pelvis without intravenous contrast. Sagittal and coronal reformatted images were created and reviewed. This CT exam was performed usi ng one or more of the following dose reduction techniques: automated exposure control, adjustment o f the mA and/or kV according to patient size, and/or use of iterative reconstruction technique. COMPARISON: CT Abdomen Pelvis 11/13/2023. FINDINGS: Lung bases: Unremarkable. No mass. No consolidation. Heart: The heart is mildly enlarged. Coronary artery calcification. Mediastinum: Small hiatal hernia. ABDOMEN: Liver: Unremarkable. Gallbladder and bile ducts: Prior cholecystectomy. No ductal dilation. Pancreas: Mild to moderate fatty replacement of the pancreatic parenchyma. No ductal dilation. Spleen: Unremarkable. No splenomegaly. Adrenals: Unremarkable. No mass. Kidneys and ureters: Striated right renal cortical enhancement. Mild bilateral hydroureteronephrosi s, right greater than left. High density material is present within both renal collecting systems. Stomach and bowel: Moderate stool. No bowel obstruction. Colonic diverticula without adjacent infla mmatory change. No mucosal thickening. PELVIS: Appendix: Prior appendectomy. Bladder: The urinary bladder is distended despite the presence of a Booker catheter. There is a lobu lated area of hyperdensity within the urinary bladder centrally and on the left and surrounding the F oley catheter measuring approximately 10.1 x 5.2 x 5.7 cm. Reproductive: Unremarkable as visualized. ABDOMEN and PELVIS: Intraperitoneal space: Unremarkable. No free air. No significant fluid collection. Bones/joints: Remote lower thoracic compression deformities. No acute fracture. Multilevel spondylo sis. Soft tissues: Small fat-containing umbilical and bilateral inguinal hernias. Vasculature: Severe atherosclerotic disease. No abdominal aortic aneurysm. Lymph nodes: Unremarkable. No enlarged lymph nodes. IMPRESSION: 1. There is a lobulated area of hyperdensity within the urinary bladder centrally and on the left and surrounding the Booker catheter measuring approximately 10.1 x 5.2 x 5.7 cm suggestive of hemorrhagic clot. Although the patient reportedly had a [facility] and there is apparent excreted contrast within both renal collecting systems on the current study, the configuration suggests clot rather than excreted contrast. Direct visualizatio n may be necessary in order to exclude an underlying mass. 2. There is a heterogeneous right renal cortical enhancement and as previously mentioned presumed e xcreted contrast within both renal collecting systems. Given the time frame of the prior CT, please c orrelate clinically for contrast-induced nephropathy. Underlying hemorrhagic clot within either renal collecting system cannot be excluded. 3. Other findings as above. Electronically signed by: Clint Stewart MD 12/15/2023 03:36 AM CDT RP Due to temporary technical issues with the PACS/Fluency reporting system, reports are being signed by the in house radiologist without review as a courtesy to ensure prompt reporting. The interpreting r adiologist is fully responsible for the content of the report.
== END 2023-12-15 04:22 | disposition short-term general hospital (02) ==
LOC: ER 22:53
DX: R31.0 Gross hematuria (principal); N32.0 Bladder-neck obstruction; R33.9 Retention of urine, unspecified; N32.9 Bladder disorder, unspecified; Z85.46 Personal history of malignant neoplasm of prostate; Z85.51 Personal history of malignant neoplasm of bladder; Z95.810 Presence of automatic (implantable) cardiac defibrillator
CPT/HCPCS: 96365; 96361; 85025; 80048; 36415; 85610; 80076; 74176; 96375; 99285; J1170; J2405; J7030; J0696

== ENCOUNTER 2024-02-01 09:36 | Emergency (ER) | payer OTHER, BC ==
[2024-02-01 10:14] LABS: Blood Gas Oxyhemoglobin 90.3 % (94-97)
[2024-02-01 10:15] LABS: Arterial Blood Carboxyhemoglob 1.1 % (0-1.5); Blood Gas THB 13.3 g/dl (12-18)
[2024-02-01 10:17] LABS: Absolute Lymphocytes (CBC) 1.1 K/uL (0.7-4.9); Absolute Neutrophil 16.1 K/uL (1.8-8.0); Eosinophils % 0.1 % (0-4.4); Hematocrit 33.5 % (39.6-49.0); Hemoglobin 10.8 g/dL (13.6-17.9); Lymphocytes % 5.8 % (15.3-44.8); MCH 30.6 pg (27.0-35.0); MCHC 32.1 g/dL (32.0-36.0); MCV 95.4 fL (80-100); MPV 6.8 fL (7.6-11.3); Monocytes % 5.3 % (3.3-12.3); Neutrophils % 88.8 % (41.7-73.7); Platelets 538 thou/uL (152-406); RBC Red Blood Cell Count 3.51 M/uL (4.33-5.43); Red Cell Distribution Width 14.5 % (12.1-15.2)
[2024-02-01 10:20] LABS: PT Prothrombin Time 15.2 SECONDS (9.4-12.5); PTT, Activated Partial Thromb 25.5 SECONDS (24.3-36.9); Protime INR 1.37
[2024-02-01 10:31] LABS: Albumin 1.7 g/dL (3.4-5.0); Albumin/Globulin Ratio 0.4 (1.1-1.8); Anion Gap 23.7 mEq/L (5.0-15.0); Bilirubin Direct 0.3 mg/dL (0-0.2); Bilirubin Indirect, Calculated 0.2 mg/dL (0.2-0.8); Bilirubin Total 0.5 mg/dL (0.2-1.0); Globulin 4.4 g/dL (2.3-3.5); Magnesium 2.8 mg/dL (1.6-2.4); Potassium 4.7 mEq/L (3.5-5.1); Protein, Total 6.1 g/dL (6.4-8.2)
[2024-02-01 10:33] LABS: Troponin High Sensitivity 93.6 pg/mL (<58.9)
--- NOTE | 2024-02-01 10:39 | RAD REPORT ---
EXAMINATION: ONE VIEW CHEST XR CLINICAL INDICATION: DYSPNEA TECHNIQUE: Frontal chest projection is submitted. Examination is limited by positioning and technique . COMPARISON: 12/10/2023 FINDINGS: Patchy opacities are present in both lower lung santana, greater on the right probably representing pn eumonia. The heart is moderately enlarged in size. No displaced fractures identified. Dual lead pacer device noted. Sternotomy wires are present. IMPRESSION: Bibasilar pneumonia pattern is suspected, greater on the right.
[2024-02-01] MEDS ORDERED: Levofloxacin 750mg IV 750 MG/150 ML BAG IV ONE (10:54)
[2024-02-01] MEDS ORDERED: NA CHLORIDE 0.9% 1,000 ML ONE (11:03)
[2024-02-01 11:23] LABS: Differential Total Cells Count 100; Lymphocytes 6 % (15-42); Monocytes 8 % (0-10); Platelet Estimate INCR; Segmented Neutrophils 86 % (40-80)
[2024-02-01 11:24] LABS: Blood Morphology Comment NOT SEEN (NOT SEEN)
[2024-02-01 11:31] LABS: SARS-CoV-2 Antigen CONTROL BLUE LINE VIS/BG OK; SARS-CoV-2 Antigen Rapid Res Negative (Negative)
[2024-02-01] MEDS ORDERED: ALBUMIN HUMAN 25% 100 ML IV ONE (12:07)
[2024-02-01] MEDS ORDERED: FUROSEMIDE 40 MG/4 ML VIAL ONE (12:07)
--- NOTE | 2024-02-01 15:12 | ER ---
Nurse's Notes [facility] Name: Reuben Jane Age: 73 yrs Sex: Male : 1950 Arrival Date: 02/01/2024 Time: 09:36 Bed 4 Private MD: Diagnosis: Multifocal pneumonia;Septic shock;Hypoxic respiratory failure Presentation: 01/31 09:36 Chief complaint: EMS states: they were called to the patients residential for ap3 increased shortness of breath and low oxygen. EMS arrived to patient on a non-rebreather and they placed a 20g in the patients right hand and administered 125mg solumedrol IV X's1. Coronavirus screen: At this time, the client does not indicate any symptoms associated with coronavirus-19. Ebola Screen: No symptoms or risks identified at this time. Initial Sepsis Screen: Does the patient meet any 2 criteria? RR > 20 per min. HR > 90 bpm. Yes Does the patient have a suspected source of infection? No. Patient's initial sepsis screen is negative. Risk Assessment: Do you want to hurt yourself or someone else? Patient reports no desire to harm self or others. Onset of symptoms was February 01, 2024. Transition of care: patient was received from another setting of care ([facility]), [facility]. 09:36 Method Of Arrival: EMS: [facility] ap3 09:36 Acuity: TANO 2 ap3 09:42 Care prior to arrival: Medication(s) given: solumed 125mg IV x's 1 IV initiated. 20 GA, ap3 in the right hand. Triage Assessment: 09:43 General: Appears distressed, Behavior is calm, cooperative. Neuro: Level of ap3 Consciousness is awake, obeys commands, Oriented to person, place. Cardiovascular:. Respiratory: Reports shortness of breath Airway is patent Respiratory effort is even, labored, Respiratory pattern is regular, tachypnea. Historical: - Allergies: 09:41 PENICILLINS; ph - PMHx: 09:41 Bladder cancer; Chronic obstructive lung disease; Congestive heart failure; Myocardial ph infarction; Prostate Cancer; - PSHx: 09:41 Appendectomy; Cholecystectomy; Coronary Angioplasty; Pacemaker/Defibrillator; ph - Immunization history:: Adult Immunizations unknown. - Infectious Disease History:: Denies. - Social history:: Smoking status: unknown. - Family history:: not pertinent. Screenin:47 [facility] ED Fall Risk Assessment (Adult) History of falling in the last 3 months, ko1 including since admission No falls in past 3 months (0 pts) Confusion or Disorientation No (0 pts) Intoxicated or Sedated No (0 pts) Impaired Gait Yes (1 pt) Mobility Assist Device Used Yes (1 pt) Altered Elimination Yes (1 pt) Score/Fall Risk Level 3 or more points = High Risk Oriented to surroundings, Maintained a safe environment, Educated pt \T\ family on fall prevention, incl call for assistance when getting out of bed, Assessed \T\ reinforced patient's understanding of fall precautions, Provided non-skid footwear, Hourly rounding (assess needs \T\ fall precautionary measures) done, Implemented a Fall Risk Plan of Care, Apply high fall risk patient identification: yellow non skid footwear/ fall signage, Utilized family, sitter, or virtual mail list librarian as indicated. Abuse screen: Denies threats or abuse. Denies injuries from another. Nutritional screening: No deficits noted. Tuberculosis screening: No symptoms or risk factors identified. Assessment: 10:50 General: Appears uncomfortable, ill, Behavior is appropriate for age. Pain: Denies ko1 pain. Neuro: No deficits noted. Cardiovascular: Rhythm is sinus tachycardia. Respiratory: Patient placed on BiPAP:. GI: No deficits noted. :. EENT: No deficits noted. Derm: No deficits noted. Musculoskeletal: No deficits noted. 15:59 Reassessment: Report given to CALE Robertson. [email or web address] Vital Signs: 09:36 BP 189 / 119; Pulse 119; Resp 24; Temp 97.9(A); Pulse Ox 90% on Non-rebreather mask; ap3 09:40 BP 189 / 119; Pulse 121; Resp 32; Pulse Ox 92% on BiPAP; ph 10:47 BP 93 / 60; Pulse 101; Resp 28; Pulse Ox 94% on BiPAP; ko1 10:49 Weight 80.29 kg; ap3 12:00 BP 112 / 67; Pulse 105; Resp 28; Pulse Ox 98% on BiPAP; ph 16:15 BP 109 / 73; Pulse 101; Resp 26; Pulse Ox 97% on BiPAP; ko1 ED Course: 09:36 Patient arrived in ED. ap3 09:37 Saurabh Villalobos MD is Attending Physician. rt 09:41 Arm band placed on Patient placed in an exam room, on a stretcher, on oxygen, on ph patient monitor, on pulse oximetry. 09:42 Triage completed. ap3 09:42 Patient has correct armband on for positive identification. Bed in low position. Call ph light in reach. Side rails up X 1. 10:02 Lactate w/ 2H reflex if indic. Sent. ko1 10:03 Protime (+inr) Sent. ko1 10:03 Ptt, Activated Sent. ko1 10:03 BIPAP Sent. ko1 10:03 ABG Sent. ko1 10:03 Basic Metabolic Panel Sent. ko1 10:03 CBC with Diff Sent. ko1 10:03 LFT's Sent. ko1 10:03 Magnesium Sent. ko1 10:03 NT PRO-BNP Sent. ko1 10:03 Troponin HS Sent. ko1 10:21 XRAY Chest (1 view) In Process Unspecified. EDMS 10:30 First set of blood cultures drawn by me. ph 10:39 Inserted saline lock: 22 gauge in right antecubital area, using aseptic technique. ph Blood collected. Flushed with 10 mL NS. 10:47 Luana Castro, RN is Primary Nurse. ph 10:47 Provided Education on: labs. Client placed on continuous cardiac and pulse oximetry ko1 monitoring. NIBP monitoring applied. cardiac monitor technician on. Door closed. Noise minimized. Lights dimmed. Warm blanket given. Pillow given. 10:47 Maintain EMS IV. Dressing intact. Good blood return noted. Site clean \T\ dry. Gauge \T\ ko 1 site: 20 R wrist. Flushed with 10 mL NS. 10:48 Notified ED physician of a critical lab result(s). lactacte 10.1. ap3 11:03 initiated a transfer with Nan from the [facility] transfer center at the request of the eb patient. 11:13 COVID swab sent to lab. ap3 11:37 [facility] on the line to coordinate doc to doc report. ap3 14:42 Assisted provider with central line placement. Set up central line tray. Triple lumen ap3 line placed in right femoral. Line placed by Saurabh Villalobos MD Placement verified by blood return, Dressed with Tegaderm, Patient tolerated well. Before procedure, did Practitioner(s) obtain informed consent? Yes. Patient \T\ family education about procedure, CLABSI prevention and S/S of infection? Yes. Time-out/Briefing performed prior to start of procedure? Yes. Was handwashing/sanitizing done immediately prior to procedure? Yes. Was patient positioned to in a way to prevent air embolism? Yes. Was procedure site sterilized? Yes, with chlorhexidine. Was the site allowed to dry? Yes. Was local anesthetic and/or sedation utilized? Yes. During the procedure, did the Practitioner(s) maintain a sterile field? Yes. Were unused ports clamped during insertion? Yes. Was a 2nd qualified MD obtained after 3 unsuccessful insertion attempts? N/A. Was blood aspirated from each lumen? Yes. After the procedure, did the Practitioner(s) clean the site and apply a sterile dressing? Yes. 15:05 connected the hand reamer telecommunications line mechanic for [facility] with Dr. Villalobos for patient eb transfer consultation. 15:10 administrative approval given by Johnna Espinosa/ patient has been accepted to [facility] 8c 853/ Dr. Libby Nash has accepted the patient in transfer/ report to be called to [phone]. 15:49 Lactate w/ 2H reflex if indic. Sent. ko1 16:15 Patient transferred, IV remains in place. ko1 Administered Medications: 10:59 Drug: levofloxacin IVPB 750 mg 150 ml IVPB once over 90 mins Volume: 150 ml; Route: ko1 IVPB; Infused Over: 90 mins; Site: right wrist; 12:30 Follow up: Response: No adverse reaction; IV Status: Completed infusion; IV Intake: ko1 150ml 11:00 Drug: NS 0.9% IV 1000 ml IV at 1 bolus Per protocol; to be given as a bolus over 60 ko1 minutes Route: IV; Rate: 1 bolus; Site: right antecubital; 14:00 Follow up: Response: No adverse reaction; IV Status: Completed infusion; IV Intake: ko1 1000ml 12:50 Drug: Albumin IVPB 25 grams 100 ml IVPB once; (Note: Albumin 25% concentration) Volume: ph 100 ml; Route: IVPB; Site: right hand; 13:50 Follow up: Response: No adverse reaction; IV Status: Completed infusion; IV Intake: ko1 100ml 15:37 Drug: Norepinephrine IV 0.1 mcg/kg/min IV at calculated rate Per protocol; (Standard ap3 concentration 4 mg / 250 mL D5W); Recommended max rate 3 mcg/kg/min; Titrate 0.05 mcg/kg/min as often as every 5 minutes to achieve goal (see titration policy); Goal parameter MAP greater than 65 mmHg. Route: IV; Rate: calculated rate; Site: right femoral; 16:10 Follow up: Rate change 0.2 mcg/kg/min ko1 16:43 Follow up: Response: No adverse reaction; IV Status: Infusion continued upon transfer ko1 16:00 Drug: Furosemide IVP 40 mg IVP once; give over 2 minutes Route: IVP; Site: right ko1 antecubital; 16:15 Follow up: Response: No adverse reaction ko1 Medication: 10:47 VIS not applicable for this client. ko1 Intake: 12:30 IV: 150ml; Total: 150ml. ko1 13:50 IV: 100ml; Total: 250ml. ko1 14:00 IV: 1000ml; Total: 1250ml. ko1 Outcome: 15:12 ER care complete, transfer ordered by . rt 16:42 Transferred by ground EMS [facility]. to [facility], ko1 Transfer form completed. X-rays sent w/ patient. 16:42 Condition: stable 16:42 Instructed on the need for transfer, 16:42 Patient left the ED. ko1 Signatures: Dispatcher [employer] EDLuana Pugh RN RN ph Dion Ferrer RN RN jb4 Kelsey Beckman RN RN ap3 Aminah Garcia Kathy, RN RN ko1 Saurabh Villalobos MD MD rt Corrections: (The following items were deleted from the chart) 09:49 09:40 BP 189 / 119; Pulse 21bpm; Resp 32bpm; Pulse Ox 92% BiPAP; ph ph
--- NOTE | 2024-02-01 15:12 | EDPHYS ---
Physician Documentation [facility] Name: Reuben Jane Age: 73 yrs Sex: Male : 1950 Arrival Date: 02/01/2024 Time: 09:36 Bed 4 Private MD: ED Physician Saurabh Villalobos HPI: 01/31 09:54 This 73 yrs old Male presents to ER via EMS with complaints of Respiratory Distress. rt 09:54 Patient presents to the ED from [facility] for shortness of breath. Patient reportedly rt had an oxygen saturation at 40% on room air. Corrected to 92 on 15 L by nonrebreather. Patient received 125 Solu-Medrol. Denies other acute complaints at this time, symptoms are severe in severity, no other aggravating or alleviating factors.. Historical: - Allergies: 09:41 PENICILLINS; ph - PMHx: 09:41 Bladder cancer; Chronic obstructive lung disease; Congestive heart failure; Myocardial ph infarction; Prostate Cancer; - PSHx: 09:41 Appendectomy; Cholecystectomy; Coronary Angioplasty; Pacemaker/Defibrillator; ph - Immunization history:: Adult Immunizations unknown. - Infectious Disease History:: Denies. - Social history:: Smoking status: unknown. - Family history:: not pertinent. ROS: 09:54 Constitutional: Negative for fever, chills, and weight loss, Cardiovascular: Negative rt for chest pain, palpitations, and edema, Abdomen/GI: Negative for abdominal pain, nausea, vomiting, diarrhea, and constipation, MS/Extremity: Negative for injury and deformity, Skin: Negative for injury, rash, and discoloration, Neuro: Negative for headache, weakness, numbness, tingling, and seizure, 09:54 Respiratory: Positive for cough, shortness of breath, Exam: 09:54 Chest/axilla: Normal chest wall appearance and motion. Nontender with no deformity. rt No lesions are appreciated. Cardiovascular: Regular rate and rhythm with a normal S1 and S2. No gallops, murmurs, or rubs. Normal PMI, no JVD. No pulse deficits. MS/ Extremity: Pulses equal, no cyanosis. Neurovascular intact. Full, normal range of motion. Neuro: Awake and alert, GCS 15, oriented to person, place, time, and situation. Cranial nerves II-XII grossly intact. Motor strength 5/5 in all extremities. Sensory grossly intact. Cerebellar exam normal. Normal gait. 09:54 Constitutional: The patient appears Acutely distressed, pale 09:54 ECG was reviewed by the Attending Physician. 09:54 Respiratory: Crackles heard diffusely, moderate respiratory distress, 09:54 Skin: Pale, diaphoretic. Vital Signs: 09:36 BP 189 / 119; Pulse 119; Resp 24; Temp 97.9(A); Pulse Ox 90% on Non-rebreather mask; ap3 09:40 BP 189 / 119; Pulse 121; Resp 32; Pulse Ox 92% on BiPAP; ph 10:47 BP 93 / 60; Pulse 101; Resp 28; Pulse Ox 94% on BiPAP; ko1 10:49 Weight 80.29 kg; ap3 12:00 BP 112 / 67; Pulse 105; Resp 28; Pulse Ox 98% on BiPAP; ph 16:15 BP 109 / 73; Pulse 101; Resp 26; Pulse Ox 97% on BiPAP; ko1 Procedures: 17:21 Central Line: the site was prepped with Chlorhexidine, a triple lumen catheter was rt inserted, in the right femoral vein, in 2 attempts. placement was verified, by blood return, the site was dressed with Chlorhexidine impregnated Tegaderm, the patient tolerated the procedure, well. MDM: 09:37 Patient medically screened. rt 17:21 Differential Diagnosis CHF, pneumonia, COPD. Data reviewed: vital signs, nurses notes, rt lab test result(s), EKG, radiologic studies. Consideration of Admission/Observation Escalation of care including admission/observation considered. Patient requires transfer for higher level of care, had a recent hospitalization at [facility], will send back. Management of patient was discussed with the following: Stay Cutter: Discussed with accepting therapist speech at [facility]. I considered the following discharge prescriptions or medication management in the emergency department Medications were administered in the Emergency Department. See MAR. Independent interpretation of the following test(s) in the Emergency Department X-Ray: My interpretation is Edema with infiltrate seen on interpretation of x-ray images. Care significantly affected by the following chronic conditions: Congestive Heart Failure, Chronic Obstructive Pulmonary Disease, Cancer. Post IV fluid administration reassessment for Sepsis: Client not prescribed the 30 mL/kg IVF due to: concern for fluid overload. concern related to heart failure. Amount of IVF prescribed: 1000 Focused assessment performed: February 01, 2024 at 14:00 Heart: Regular rate/rhythm. Lungs: Crackles noted. Skin examination performed. Skin noted to be pink. Neuro: Patient's neurological exam has improved from previous exam. Cardio: Cardiovascular exam improved from previous exam. Heart rate and blood pressure have improved. Respiratory: Respiratory exam improved from previous exam. Counseling: I had a detailed discussion with the patient and/or guardian regarding the historical points, exam findings, and any diagnostic results supporting the discharge/admit diagnosis, lab results, radiology results, the need to transfer to another facility. Response to treatment: the patient's symptoms have markedly improved after treatment. 01/31 09:37 Order name: Basic Metabolic Panel; Complete Time: 10:42 rt 01/31 09:37 Order name: CBC with Diff; Complete Time: 11:35 rt 01/31 09:37 Order name: LFT's; Complete Time: 10:42 rt 01/31 09:37 Order name: Magnesium; Complete Time: 10:42 rt 01/31 09:37 Order name: NT PRO-BNP; Complete Time: 10:42 rt 01/31 09:37 Order name: Troponin HS; Complete Time: 10:42 rt 01/31 09:37 Order name: ABG; Complete Time: 10:42 rt 01/31 09:37 Order name: Blood Culture Adult (2) rt 01/31 09:37 Order name: Lactate w/ 2H reflex if indic.; Complete Time: 10:51 rt 01/31 09:37 Order name: Protime (+inr); Complete Time: 10:42 rt 01/31 09:37 Order name: Ptt, Activated; Complete Time: 10:42 rt 01/31 11:08 Order name: SARS RAPID; Complete Time: 11:35 ap3 01/31 11:24 Order name: Manual Differential; Complete Time: 11:35 EDMS 01/31 12:50 Order name: Ghost Lactate-NO COLLECT Timer; Complete Time: 12:51 EDMS 01/31 15:04 Order name: Lactate w/ 2H reflex if indic.; Complete Time: 17:17 rt 01/31 09:37 Order name: XRAY Chest (1 view); Complete Time: 10:42 rt 01/31 09:37 Order name: BIPAP rt 01/31 09:37 Order name: Cardiac monitoring; Complete Time: 10:03 rt 01/31 09:37 Order name: EKG - Nurse/Tech; Complete Time: 10: rt 01/31 09:37 Order name: IV Saline Lock; Complete Time: : rt 01/31 09:37 Order name: Labs collected and sent; Complete Time: 10: rt 01/31 09:37 Order name: O2 Per Protocol; Complete Time: 10: rt 01/31 09:37 Order name: O2 Sat Monitoring; Complete Time: : rt 01/31 09:37 Order name: Accucheck; Complete Time: 10:46 rt 01/31 09:37 Order name: IV Saline Lock - Large Bore; Complete Time: 10: rt 01/31 09:37 Order name: Vital Signs; Complete Time: :44 rt EC:54 Rate is 123 beats/min. Rhythm is regular, Sinus tachycardia with No ectopy, Left bundle rt branch block. QRS Gwynn is Normal. CO interval is normal. QRS interval is normal. No Q waves. T waves are Normal. Administered Medications: 10:59 Drug: levofloxacin IVPB 750 mg 150 ml IVPB once over 90 mins Volume: 150 ml; Route: ko1 IVPB; Infused Over: 90 mins; Site: right wrist; 12:30 Follow up: Response: No adverse reaction; IV Status: Completed infusion; IV Intake: ko1 150ml 11:00 Drug: NS 0.9% IV 1000 ml IV at 1 bolus Per protocol; to be given as a bolus over 60 ko1 minutes Route: IV; Rate: 1 bolus; Site: right antecubital; 14:00 Follow up: Response: No adverse reaction; IV Status: Completed infusion; IV Intake: ko1 1000ml 12:50 Drug: Albumin IVPB 25 grams 100 ml IVPB once; (Note: Albumin 25% concentration) Volume: ph 100 ml; Route: IVPB; Site: right hand; 13:50 Follow up: Response: No adverse reaction; IV Status: Completed infusion; IV Intake: ko1 100ml 15:37 Drug: Norepinephrine IV 0.1 mcg/kg/min IV at calculated rate Per protocol; (Standard ap3 concentration 4 mg / 250 mL D5W); Recommended max rate 3 mcg/kg/min; Titrate 0.05 mcg/kg/min as often as every 5 minutes to achieve goal (see titration policy); Goal parameter MAP greater than 65 mmHg. Route: IV; Rate: calculated rate; Site: right femoral; 16:10 Follow up: Rate change 0.2 mcg/kg/min ko1 16:43 Follow up: Response: No adverse reaction; IV Status: Infusion continued upon transfer ko1 16:00 Drug: Furosemide IVP 40 mg IVP once; give over 2 minutes Route: IVP; Site: right ko1 antecubital; 16:15 Follow up: Response: No adverse reaction ko1 Disposition Summary: 02/01/24 15:12 Transfer Ordered Notes: Transfer Location: [facility] rt Reason: Higher level of care rt Condition: Critical rt Problem: new rt Symptoms: have improved rt Accepting Physician: (02/01/24 16:42) [email or web address] Diagnosis - Multifocal pneumonia rt - Septic shock rt - Hypoxic respiratory failure rt Forms: - Medication Reconciliation Form rt - SBAR form rt Critical care time excluding procedures: 17:21 Critical care time: Bedside Care: 45 minutes, Consultation: 10 minutes. Total time: 55 rt minutes Signatures: Dispatcher [employer] Luana Zamora RN RN Kelsey Beckman RN RN [email or web address] Mickie Newman RN RN ko1 Saurabh Villalobos MD MD rt Corrections: (The following items were deleted from the chart) 16:42 15:12 rt ko1
[2024-02-01] MEDS ORDERED: NOREPINEPHRINE BITARTRATE/D5W 4 MG/250 ML KIT IV ONE (15:29)
[2024-02-01 19:11] VITALS: TEMP 97.9
[2024-02-01 19:18] VITALS: BP 109/73; O2SAT 97
--- NOTE | 2024-02-07 12:19 | EKG ---
Test Date: 2024-02-01 Test Time: 09:36:30 Set Up Mechanic Coating Machines: ANNA MEASUREMENT RESULTS: Intervals: Rate: 123 ID: [id number] QRSD: 110 QT: 310 QTc: 443 Joaquin: P: 65 ID: [id number] QRS: 55 T: 226 INTERPRETIVE STATEMENTS: Sinus tachycardia Incomplete left bundle branch block ST & T wave abnormality, consider inferolateral ischemia Abnormal ECG Compared to ECG 12/10/2023 12:14:10 Sinus rhythm no longer present Ventricular premature complex(es) no longer present Prolonged QT interval no longer present ST (T wave) deviation still present Possible ischemia still present Electronically Signed On 02-07-24 12:02:06 CDT by Yadiel Schwartz
== END 2024-02-01 16:42 | disposition short-term general hospital (02) ==
LOC: ER 09:36
DX: J18.8 Other pneumonia, unspecified organism (principal); R65.21 Severe sepsis with septic shock; J96.91 Respiratory failure, unspecified with hypoxia; J44.9 Chronic obstructive pulmonary disease, unspecified; I50.9 Heart failure, unspecified; Z95.810 Presence of automatic (implantable) cardiac defibrillator; Z11.52 Encounter for screening for COVID-19
CPT/HCPCS: 93005; 87040 ×2; 85025; 80048; 36415; 83735; 85610; 80076; 83605 ×2; 85730; 84484; 83880; 71045; 82805; 87811; 36600; 94660; 36556; J1940; P9047; J7030; 99285